=== PATIENT | male | born 1930 | race Caucasian/White ===

== ENCOUNTER 2016-06-11 08:54 | Emergency (ER) | payer OTHER ==
[~2016-06-11 08:54] MED LIST: CALCIUM500 M2; FISH OIL1000 M1; LEVOFLOXACIN500 MG PO; NAMENDA10 MG PO; VITAMIN C100 M1; VITAMIN D1000 UNIT PO
--- NOTE | 2016-06-11 13:40 | ED CLINICAL REPORT ---
Clinical Report - Physicians/Mid Levels [facility] [address] [place] [address] 06/11/2016 8:53 Patient: AURELIANO FARRELL Time Seen: 09:07; initial patient contact. Arrived- By private vehicle. Historian- patient. HISTORY OF PRESENT ILLNESS Chief Complaint: COUGH. This started about 3 days ago; Also fell last night and is still present. The illness is described as mild. The patient has had a cough and nasal congestion. No sputum production, difficulty breathing, fever or chills. Additional history - No known contact with a sick individual. Similar symptoms previously: None. Recent medical care: Not recently seen/assessed. REVIEW OF SYSTEMS No headache, nausea, vomiting, diarrhea or pedal edema. No calf pain. All systems otherwise negative, except as recorded above. PAST HISTORY Hyponatremia. Diarrhea. Gastroenteritis. Weakness. Hypotension. Hypovolemia. Lung Disease. Dementia. Hematuria. COPD - Chronic Obstructive Pulmonary Disease. SOCIAL HISTORY Former smoker. PHYSICAL EXAM Vital Signs: 06/11/2016 09:05 BP: 103/84. HR: 78. RR: 18. O2 saturation: 100%. Temp: 98.8 F. Pain level now: 0/10. Have been reviewed as normal. Appearance: Alert. No acute distress. Eyes: Pupils equal, round and reactive to light. Eyes normal inspection. ENT: Pharynx normal. Neck: Normal inspection. No JVD or lymphadenopathy. CVS: Normal heart rate and rhythm. Heart sounds normal. Respiratory: No respiratory distress. Breath sounds normal. Skin: Skin warm and dry. Normal skin color. No rash. Extremities: No calf tenderness. No lower extremity edema. Neuro: Awake. Alert. Oriented X 3. Cranial nerves II through XII intact. No cerebellar findings. No motor deficit. No sensory deficit. Reflexes normal. LABS, X-RAYS, AND EKG Laboratory Tests: UA-Culture if indicated: (CODY: 06/11/2016 10:05) ( MsgRcvd 06/11/2016 10:42) Final results Test Result Flag Units (Reference) URINE COLOR YELLOW URINE APPEARANCE CLEAR URINE GLUCOSE NEGATIVE (NEGATIVE) URINE BILIRUBIN NEGATIVE (NEGATIVE) URINE KETONE 2+ (NEGATIVE) URINE SPECIFIC GRAVITY 1.010 (1.010-1.030) URINE PH 6.0 (5.0-8.0) URINE PROTEIN NEGATIVE (NEGATIVE) URINE UROBILINOGEN 0.2 EU/dL (0.2-1.0) URINE NITRITE NEGATIVE (NEGATIVE) URINE BLOOD NEGATIVE (NEGATIVE) URINE LEUK ESTERASE NEGATIVE (NEGATIVE) URINE RBC 0-1 rbc/hpf (0-1) URINE WBC 1-3 wbc/hpf (0-1) URINE EPITHELIAL CELLS 0-1 EPI/hpf (0-5) URINE BACTERIA FEW (1+) (NONE SEEN) URINE COMMENT CULT NOT INDICATED 1+ MUCOUSURINE CULTURES ARE SET-UP BASED ON THE FOLLOWING CRITERIA:POSITIVE NITRITEPOSITIVE LEUKOCYTE ESTERASEGREATER THAN 10 WHITE BLOOD CELLSMODERATE (2+) OR GREATER BACTERIA CBC w Diff: (CODY: 06/11/2016 09:20) ( [facility] [place] Final results Test Result Flag Units (Reference) WHITE BLOOD COUNT 8.1 K/uL (4.5-11.5) RED BLOOD COUNT 4.23 L M/uL (4.50-5.90) HEMOGLOBIN 13.2 L gm/dL (13.5-17.5) HEMATOCRIT 39.3 L % (41.0-53.0) MEAN CELL VOLUME 93 fL (80-100) MEAN CORPUSCULAR HGB 31 pg (26-34) MEAN CORPUSCULAR HGB CONC 34 g/dL (31-37) RED CELL DISTRIBUTION WIDTH 13.7 % (11.6-14.8) PLATELET COUNT 227 K/uL (150-400) NEUTROPHIL % 88.1 H % (50-75) LYMPH % 3.4 L % (25-40) MONO % 8.4 % (3-14) EOSINOPHIL % 0.1 % (0-4) BASOPHIL % 0 % (0-2) Urine Drug Screen: (CODY: 06/11/2016 10:05) ( [facility] [place]/11/2016 10:37) Final results Test Result Flag Units (Reference) AMPHETAMINE/METHAMPHETAMINE NEGATIVE (NEGATIVE) BARBITURATE NEGATIVE (NEGATIVE) BENZODIAZEPINE NEGATIVE (NEGATIVE) CANNABINOID NEGATIVE (NEGATIVE) COCAINE NEGATIVE (NEGATIVE) ECSTASY NEGATIVE (NEGATIVE) METHADONE NEGATIVE (NEGATIVE) OPIATE NEGATIVE (NEGATIVE) The urine drug screen is a qualitative screening test fordrug overdose and abuse. All screen results should beconsidered as presumptive.Drugs screened for are as follows:BenzodiazepinesCocaineAmphetamines/MetamphetaminesTHC (Tetrahydrocannabinol)OpiatesBarbituratesEcstasyMethadonePositive results are unconfirmed. For confirmation, notifythe lab for the specimen to be sent to the reference lab.All confirmations must be performed by a differentmethodology.The ingestion of natural herbal and plant productscontaining Ephedra/Ephedra metabolites can produce in urineone or more substances capable of cross reacting withamphetamine/methamphetamine immunoassays. These testsprovide a preliminary result only. A more specificalternative chemical method must be used to obtain aconfirmed analytical result. CMP: (CODY: 06/11/2016 09:20) ( MsgRcvd 06/11/2016 09:53) Final results Test Result Flag Units (Reference) GLUCOSE 85 mg/dL (70-110) BUN 17 mg/dL (7-18) CREATININE 1.1 mg/dL (0.6-1.3) Estimated GFR >60 mL/min Estimated GFR- >60 mL/min Note: Persistent reduction over 3 months in eGFR<60 mL/min/1.73 m2 defines CKD. Patients with eGFR values>=60 mL/min/1.73 m2 may also have CKD if evidence ofpersistent proteinuria. Additional information may be foundat www.kidney.org. SODIUM 132 L mmol/L (136-145) POTASSIUM 4.0 mmol/L (3.5-5.1) CHLORIDE 97 L mmol/L (98-107) CARBON DIOXIDE 25 mmol/L (21-32) CALCIUM 8.8 mg/dL (8.5-10.1) TOTAL PROTEIN 7.0 g/dL (6.4-8.2) ALBUMIN 3.9 g/dL (3.3-5.0) BILIRUBIN, TOTAL 0.6 mg/dL (0.0-1.0) ALKALINE PHOSPHATASE 46 U/L (46-116) AST (SGOT) 25 U/L (15-37) ALT (SGPT) 30 U/L (12-78) . PROGRESS AND PROCEDURES Course of Care: D/C planning met w/ pt and . F2F signed for home health PT and nurse eval. Disposition: Discharged home in good and improved condition. Condition: good. CLINICAL IMPRESSION Acute rhinitis. INSTRUCTIONS Your Current Medications: CONTINUE TAKING THE FOLLOWING MEDICATIONS: Mamarterin hydrochloride*. Tamsulosin HCl Oral. Prescription Medications: Tessalon Perles 100 mg: take 1 orally every 8 hours as needed for cough. Dispense twenty (20). No refills. Substitution is permissible. Follow-up: Follow up with your doctor in about three days. Call for an appointment. Screening today revealed the patient's blood pressure to be in the hypertensive range. The patient should follow up with a primary care provider for blood pressure management. (Electronically signed by Marquise Lantigua Dr. 06/11/2016 21:51)
--- NOTE | 2016-06-11 13:41 | ED NURSING NOTES ---
Clinical Report - Nurses [facility] [address] [place] [address] 06/11/2016 8:53 Patient: AURELIANO FARRELL TRIAGE Triage time 09:06. Acuity: LEVEL 3. Chief Complaint: (Pt's , who takes care of pt, states last night, he got up, fell softly to floor, and has had lung congestion for 3 days, pt also has dementia). Alert. TIANA COMA SCORE: Tiana Coma Scale: 14- eyes open spontaneously (4); best verbal response- disoriented (4); best motor response- obeys commands (6). --09:13 Jacqueline Marcus R.N. 09:05 06/11/16. BP: 103/84. HR: 78. RR: 18. O2 saturation: 100%. Temp: 98.8 F. Pain level now: 0/10. --09:13 Jacqueline Marcus R.N. Weight: 63.5 kg stated. Height/Length: 67 inches Per Patient. BMI: 21.9. --09:08 Jacqueline Marcus R.N. Medications Mamarterin hydrochloride. Tamsulosin HCl Oral. --09:10 Jacqueline Marcus R.N. Allergies No Known Drug Allergy. --09:10 Jacqueline Marcus R.N. History Arrived by private vehicle. Historian: family. Accompanied by family. Primary physician (Charleen). This started last night. PAST MEDICAL HX: Immunizations: up-to-date and has received pneumonia vaccine. History was obtained from patient's spouse. SURGERY HX: No history of previous surgery. SOCIAL HX: Former smoker, end date 1959. No alcohol use or drug use. FUNCTIONAL ASSESSMENT: Functional assessment performed: requires assistance with the activities of daily living; communication barrier present- this communication barrier is a new problem; hearing impairment present- this hearing impairment is an ongoing problem; cognitive impairment- senile dementia. --09:13 Jacqueline Marcus R.N. PROBLEMS: Hyponatremia. Diarrhea. Gastroenteritis. Weakness. Hypotension. Hypovolemia. Lung Disease. Dementia. Hematuria. COPD - Chronic Obstructive Pulmonary Disease. --09:08 Jacqueline Marcus R.N. Interventions ID band on patient. To room. --09:13 Jacqueline Marcus R.N. PHYSICAL ASSESSMENT 09:14 06/11/16. GENERAL / NEURO / PSYCH: Alert. Decreased awareness. RESPIRATORY: Respirations not labored. --09:14 Jacqueline Marcus R.N. NURSING PROGRESS NOTES 09:43 06/11/2016 Site #1 started via IV in the right forearm with an 20g angiocath, with aseptic technique and good blood return; one attempt. Blood drawn: rainbow set. Labeled in the presence of the patient and sent to the lab. Saline lock flushed with 10 mL saline. --09:43 Jacqueline Marcus R.N. 09:43 06/11/2016 Started bag #1 1000 mL IV Fluids IV NS (Saline); at 999 mL/hr via site #1 via IV pump. Confirmed 5 rights. --09:43 Jacqueline Marcus R.N. 09:20. school bus monitor, pulse oximeter and NIBP monitor placed on patient; property assessment monitor- Lead II and V1; monitor alarms on. Head of bed elevated. Patient identifiers checked. Call light placed in reach. Bed placed in lowest position. Brakes of bed on. Patient ready for evaluation- chart flagged. --10:23 Jacqueline Marcus R.N. 09:50. ( Pt assisted with 2 staff, to get pt up and stand to void for urine sample, pt unable to void into urinal, placed back in bed, attends placed.). --10:24 Jacqueline Marcus R.N. 10:00. Patient ID band checked. Catheterized urine collected with return of yellow-colored clear urine; sample sent to lab for urinalysis and culture. --10:24 Jacqueline Marcus R.N. 11:30 06/11/16. BP: 154/95. HR: 81. RR: 14. O2 saturation: 99%. --11:57 Jacqueline Marcus R.N. 11:35. Assisted patient to ambulate and back to bed; tolerated well (with walker down hernandez and back, ERMD performed quick assessment in hernandez of pt's balance, pt tolerated well). --12:00 Jacqueline Marcus R.N. 12:04 06/11/16. ( Pt's wants a chest x ray taken, and pt to have antibiotics prescribed. Explained that there was no indication that pt needed either. Discharge planning notified to see pt's . She seems exhausted, caring for her at this point, and thinks he is going to get worse.). --12:04 Jacqueline Marcus R.N. DISPOSITION / DISCHARGE Departure time: 1350. Condition at departure: improved. ( event planner, Luz, talked with pt's , and has agreed to help with homecare, pt's told that they will contact her on Tuesday.). No learning barriers present. Discharge instructions provided and reviewed with the spouse. Reviewed referral to home health for followup (PCP, physical therapy, and homecare). Verbalized understanding. Written instructions provided. The patient was discharged home. He left the Emergency Department ambulatory. --15:04 Jacqueline Marcus R.N. 13:50 06/11/16. BP: 137/79. HR: 80. RR: 18. O2 saturation: 96%. Pain level now: 0/10. --15:04 Jacqueline Marcus R.N. 13:50. ( 30 minutes spent helping pt get dressed, into wheelchair, and up to the hospital cafeteria so they can eat before leaving for home.). --15:05 Jacqueline Marcus R.N. Locked/Released at 06/11/2016 15:13 by Jacqueline Marcus R.N.
--- NOTE | 2016-06-11 13:41 | ED NURSING NOTES ---
Clinical Report - Nurses [facility] [address] [place] [address] 06/11/2016 8:53 Patient: AURELIANO FARRELL TRIAGE Triage time 09:06. Acuity: LEVEL 3. Chief Complaint: (Pt's , who takes care of pt, states last night, he got up, fell softly to floor, and has had lung congestion for 3 days, pt also has dementia). Alert. TIANA COMA SCORE: Tiana Coma Scale: 14- eyes open spontaneously (4); best verbal response- disoriented (4); best motor response- obeys commands (6). --09:13 Jacqueline Marcus R.N. 09:05 06/11/16. BP: 103/84. HR: 78. RR: 18. O2 saturation: 100%. Temp: 98.8 F. Pain level now: 0/10. --09:13 Jacqueline Marcus R.N. Weight: 63.5 kg stated. Height/Length: 67 inches Per Patient. BMI: 21.9. --09:08 Jacqueline Marcus R.N. Medications Mamarterin hydrochloride. Tamsulosin HCl Oral. --09:10 Jacqueline Marcus R.N. Allergies No Known Drug Allergy. --09:10 Jacqueline Marcus R.N. History Arrived by private vehicle. Historian: family. Accompanied by family. Primary physician (Charleen). This started last night. PAST MEDICAL HX: Immunizations: up-to-date and has received pneumonia vaccine. History was obtained from patient's spouse. SURGERY HX: No history of previous surgery. SOCIAL HX: Former smoker, end date 1959. No alcohol use or drug use. FUNCTIONAL ASSESSMENT: Functional assessment performed: requires assistance with the activities of daily living; communication barrier present- this communication barrier is a new problem; hearing impairment present- this hearing impairment is an ongoing problem; cognitive impairment- senile dementia. --09:13 Jacqueline Marcus R.N. PROBLEMS: Hyponatremia. Diarrhea. Gastroenteritis. Weakness. Hypotension. Hypovolemia. Lung Disease. Dementia. Hematuria. COPD - Chronic Obstructive Pulmonary Disease. --09:08 Jacqueline Marcus R.N. Interventions ID band on patient. To room. --09:13 Jacqueline Marcus R.N. PHYSICAL ASSESSMENT 09:14 06/11/16. GENERAL / NEURO / PSYCH: Alert. Decreased awareness. RESPIRATORY: Respirations not labored. --09:14 Jacqueline Marcus R.N. NURSING PROGRESS NOTES 09:43 06/11/2016 Site #1 started via IV in the right forearm with an 20g angiocath, with aseptic technique and good blood return; one attempt. Blood drawn: rainbow set. Labeled in the presence of the patient and sent to the lab. Saline lock flushed with 10 mL saline. --09:43 Jacqueline Marcus R.N. 09:43 06/11/2016 Started bag #1 1000 mL IV Fluids IV NS (Saline); at 999 mL/hr via site #1 via IV pump. Confirmed 5 rights. --09:43 Jacqueline Marcus R.N. 09:20. athletic monitor, pulse oximeter and NIBP monitor placed on patient; athletic monitor- Lead II and V1; monitor alarms on. Head of bed elevated. Patient identifiers checked. Call light placed in reach. Bed placed in lowest position. Brakes of bed on. Patient ready for evaluation- chart flagged. --10:23 Jacqueline Marcus R.N. 09:50. ( Pt assisted with 2 staff, to get pt up and stand to void for urine sample, pt unable to void into urinal, placed back in bed, attends placed.). --10:24 Jacqueline Marcus R.N. 10:00. Patient ID band checked. Catheterized urine collected with return of yellow-colored clear urine; sample sent to lab for urinalysis and culture. --10:24 Jacqueline Marcus R.N. 11:30 06/11/16. BP: 154/95. HR: 81. RR: 14. O2 saturation: 99%. --11:57 Jacqueline Marcus R.N. 11:35. Assisted patient to ambulate and back to bed; tolerated well (with walker down hernandez and back, ERMD performed quick assessment in hernandez of pt's balance, pt tolerated well). --12:00 Jacqueline Marcus R.N. 12:04 06/11/16. ( Pt's wants a chest x ray taken, and pt to have antibiotics prescribed. Explained that there was no indication that pt needed either. Discharge planning notified to see pt's . She seems exhausted, caring for her at this point, and thinks he is going to get worse.). --12:04 Jacqueline Marcus R.N. DISPOSITION / DISCHARGE Departure time: 1350. Condition at departure: improved. ( meeting planner, Luz, talked with pt's , and has agreed to help with homecare, pt's told that they will contact her on Tuesday.). No learning barriers present. Discharge instructions provided and reviewed with the spouse. Reviewed referral to home health for followup (PCP, physical therapy, and homecare). Verbalized understanding. Written instructions provided. The patient was discharged home. He left the Emergency Department ambulatory. --15:04 Jacqueline Marcus R.N. 13:50 06/11/16. BP: 137/79. HR: 80. RR: 18. O2 saturation: 96%. Pain level now: 0/10. --15:04 Jacqueline Marcus R.N. 13:50. ( 30 minutes spent helping pt get dressed, into wheelchair, and up to the hospital cafeteria so they can eat before leaving for home.). --15:05 Jacqueline Marcus R.N. Locked/Released at 06/11/2016 15:13 by Jacqueline Marcus R.N.
--- NOTE | 2016-06-11 13:41 | ED ORDER SUMMARY ---
..... Patient: AURELIANO FARRELL OrderSheet [facility] VisitID: [id number] [place] [address] 85y, M Registration Date/Time: 06/11/2016 ORDER SHEET Weight: 63.5 kg (stated) Allergies: No Known Drug Allergy GENERAL ORDERS: CBC w Diff Urgent (:06/11/2016 Karin Land) (Ack 9:27 LTapper) (9:34 LSullivan R.N.) CMP Urgent (:06/11/2016 Karin Land) (Ack 9:27 LTapper) (9:34 LSullivan R.N.) UA-Culture if indicated Urgent (06/11/2016 Karin Land) (Ack 9:27 LTapper) (10:24 LSullivan R.N.) Urine Drug Screen Urgent (:06/11/2016 Karin Land) (Ack 9:27 LTapper) (10:25 LSullivan R.N.) MEDICATION ORDERS: IV FLUIDS: IV NS : initial bolus none -, then 1000 mL/hr for X1 (NOW) (09:06/11/2016 Karin Land) (9:43 LSullivan R.N.) ORDER SHEET NOTES: [Electronically signed by Jacqueline Marcus R.N. (15:13 06/11/2016)] [Electronically signed by Marquise Lantigua Dr. (21:51 06/11/2016)] [Electronically locked/signed by Jacqueline Marcus R.N. (15:13 06/11/2016)]
--- NOTE | 2016-06-11 13:41 | ED ORDER SUMMARY ---
..... Patient: AURELIANO FARRELL OrderSheet [facility] VisitID: [id number] [place] [address] 85y, M Registration Date/Time: 06/11/2016 ORDER SHEET Weight: 63.5 kg (stated) Allergies: No Known Drug Allergy GENERAL ORDERS: CBC w Diff Urgent (:06/11/2016 Karin Land) (Ack 9:27 LTapper) (9:34 LSullivan R.N.) CMP Urgent (:06/11/2016 Karin Land) (Ack 9:27 LTapper) (9:34 LSullivan R.N.) UA-Culture if indicated Urgent (06/11/2016 Karin Land) (Ack 9:27 LTapper) (10:24 LSullivan R.N.) Urine Drug Screen Urgent (:06/11/2016 Karin Land) (Ack 9:27 LTapper) (10:25 LSullivan R.N.) MEDICATION ORDERS: IV FLUIDS: IV NS : initial bolus none -, then 1000 mL/hr for X1 (NOW) (09:06/11/2016 Karin Land) (9:43 LSullivan R.N.) ORDER SHEET NOTES: [Electronically signed by Jacqueline Marcus R.N. (15:13 06/11/2016)] [Electronically signed by Marquise Lantigua Dr. (21:51 06/11/2016)] [Electronically locked/signed by Jacqueline Marcus R.N. (15:13 06/11/2016)]
--- NOTE | 2016-06-11 21:51 | ED MAR SUMMARY ---
..... Medication Administration Record [facility] [address] [place] [address] Patient: AURELIANO FARRELL Visit ID: [id number] 85y, M Weight: 63.5 kg Height/Length: 67 in BMI: 21.9 ALLERGIES: No Known Drug Allergy Start 09:43 06/11/2016 Jacqueline Marcus R.N. Medication Administered: IV NS (SALINE), Dose: IV Fluids, Rate: 999 mL/hr, Dispensed: 1000 mL bag, Site: #1 right forearm. Medication Ordered: IV NS : initial bolus none -, then 1000 mL/hr for X1 (NOW).
--- NOTE | 2016-06-11 21:51 | ED MAR SUMMARY ---
..... Medication Administration Record [facility] [address] [place] [address] Patient: AURELIANO FARRELL Visit ID: [id number] 85y, M Weight: 63.5 kg Height/Length: 67 in BMI: 21.9 ALLERGIES: No Known Drug Allergy Start 09:43 06/11/2016 Jacqueline Marcus R.N. Medication Administered: IV NS (SALINE), Dose: IV Fluids, Rate: 999 mL/hr, Dispensed: 1000 mL bag, Site: #1 right forearm. Medication Ordered: IV NS : initial bolus none -, then 1000 mL/hr for X1 (NOW).
--- NOTE | 2016-06-11 21:51 | ED DISCHARGE INSTRUCTIONS ---
Patient: AURELIANO FARRELL General Instructions [facility] VisitID: [id number] [place] [address] 85y, M Registration Date/Time: 06/11/2016 Acute rhinitis. INSTRUCTIONS Your Current Medications: CONTINUE TAKING THE FOLLOWING MEDICATIONS: Mamarterin hydrochloride*. Tamsulosin HCl Oral. Prescription Medications: Tessalon Perles 100 mg: take 1 orally every 8 hours as needed for cough. Dispense twenty (20). No refills. Substitution is permissible. Follow-up: Follow up with your doctor in about three days. Call for an appointment. Screening today revealed the patient's blood pressure to be in the hypertensive range. The patient should follow up with a primary care provider for blood pressure management. ADDITIONAL INFORMATION Viral Respiratory Illness [Adult] You have an Upper Respiratory Illness (URI) caused by a virus. This illness is contagious during the first few days. It is spread through the air by coughing and sneezing or by direct contact (touching the sick person and then touching your own eyes, nose or mouth). Most viral illnesses go away within 7-10 days with rest and simple home remedies. Sometimes, the illness may last for several weeks. Antibiotics will not kill a virus and are generally not prescribed for this condition. Home Care: 1) If symptoms are severe, rest at home for the first 2-3 days. When you resume activity, don't let yourself get too tired. 2) Avoid being exposed to cigarette smoke (yours or others). 3) Tylenol (acetaminophen) or ibuprofen (Advil, Motrin) will help fever, muscle aching and headache. (Persons under 18 with fever should not take aspirin since this may cause liver damage.) 4) Your appetite may be poor, so a light diet is fine. Avoid dehydration by drinking 6-8 glasses of fluids per day (water, soft drinks, juices, tea, soup). Extra fluids will help loosen secretions in the nose and lungs. 5) Hxim-att-iqnewvx cold medicines will not shorten the length of time youre sick, but they may be helpful for the following symptoms: cough (Robitussin DM); sore throat (Chloraseptic lozenges or spray); nasal and sinus congestion (Actifed, Sudafed, Chlortrimeton). Follow Up with your doctor or as advised if you dont improve over the next week. Get Prompt Medical Attention if any of the following occur: -- Cough with lots of colored sputum (mucus) or blood in your sputum -- Chest pain, shortness of breath, wheezing or have trouble breathing -- Severe headache; face, neck or ear pain -- Fever over 100.4 F (38.0 C) for more than three days -- You cant swallow due to throat pain Benzonatate Oral capsule, liquid filled What is this medicine? BENZONATATE (timmy ESCOBAR na smalls) is used to treat cough. How should I use this medicine? Take this medicine by mouth with a glass of water. Follow the directions on the prescription label. Avoid breaking, chewing, or sucking the capsule, as this can cause serious side effects. Take your medicine at regular intervals. Do not take your medicine more often than directed. Talk to your information assurance analyst regarding the use of this medicine in children. While this drug may be prescribed for children as young as 10 years old for selected conditions, precautions do apply. What side effects may I notice from receiving this medicine? Side effects that you should report to your doctor or health career agent as soon as possible: allergic reactions like skin rash, itching or hives, swelling of the face, lips, or tongue breathing problems chest pain confusion or hallucinations irregular heartbeat numbness of mouth or throat seizures Side effects that usually do not require medical attention (report to your doctor or health career agent if they continue or are bothersome): burning feeling in the eyes constipation headache nasal congestion stomach upset What may interact with this medicine? Do not take this medicine with any of the following medications: MAOIs like Carbex, Eldepryl, Marplan, Nardil, and Parnate What if I miss a dose? If you miss a dose, take it as soon as you can. If it is almost time for your next dose, take only that dose. Do not take double or extra doses. Where should I keep my medicine? Keep out of the reach of children. Store at room temperature between 15 and 30 degrees C (59 and 86 degrees F). Keep tightly closed. Protect from light and moisture. Throw away any unused medicine after the expiration date. What should I tell my health care provider before I take this medicine? They need to know if you have any of these conditions: kidney or liver disease an unusual or allergic reaction to benzonatate, anesthetics, other medicines, foods, dyes, or preservatives or trying to get breast-feeding What should I watch for while using this medicine? Tell your doctor if your symptoms do not improve or if they get worse. If you have a high fever, skin rash, or headache, see your health career agent. You may get drowsy or dizzy. Do not drive, use machinery, or do anything that needs mental alertness until you know how this medicine affects you. Do not sit or stand up quickly, especially if you are an older patient. This reduces the risk of dizzy or fainting spells. You have been given the following additional information: Uri, Viral, No Abx (Adult) Benzonatate Oral capsule, liquid filled (Electronically signed by Marquise Lantigua Dr. 06/11/2016 21:51)
--- NOTE | 2016-06-11 21:51 | ED DISCHARGE INSTRUCTIONS ---
Patient: AURELIANO FARRELL General Instructions [facility] VisitID: [id number] [place] [address] 85y, M Registration Date/Time: 06/11/2016 Acute rhinitis. INSTRUCTIONS Your Current Medications: CONTINUE TAKING THE FOLLOWING MEDICATIONS: Mamarterin hydrochloride*. Tamsulosin HCl Oral. Prescription Medications: Tessalon Perles 100 mg: take 1 orally every 8 hours as needed for cough. Dispense twenty (20). No refills. Substitution is permissible. Follow-up: Follow up with your doctor in about three days. Call for an appointment. Screening today revealed the patient's blood pressure to be in the hypertensive range. The patient should follow up with a primary care provider for blood pressure management. ADDITIONAL INFORMATION Viral Respiratory Illness [Adult] You have an Upper Respiratory Illness (URI) caused by a virus. This illness is contagious during the first few days. It is spread through the air by coughing and sneezing or by direct contact (touching the sick person and then touching your own eyes, nose or mouth). Most viral illnesses go away within 7-10 days with rest and simple home remedies. Sometimes, the illness may last for several weeks. Antibiotics will not kill a virus and are generally not prescribed for this condition. Home Care: 1) If symptoms are severe, rest at home for the first 2-3 days. When you resume activity, don't let yourself get too tired. 2) Avoid being exposed to cigarette smoke (yours or others). 3) Tylenol (acetaminophen) or ibuprofen (Advil, Motrin) will help fever, muscle aching and headache. (Persons under 18 with fever should not take aspirin since this may cause liver damage.) 4) Your appetite may be poor, so a light diet is fine. Avoid dehydration by drinking 6-8 glasses of fluids per day (water, soft drinks, juices, tea, soup). Extra fluids will help loosen secretions in the nose and lungs. 5) Pnsw-mwx-hbjllqx cold medicines will not shorten the length of time youre sick, but they may be helpful for the following symptoms: cough (Robitussin DM); sore throat (Chloraseptic lozenges or spray); nasal and sinus congestion (Actifed, Sudafed, Chlortrimeton). Follow Up with your doctor or as advised if you dont improve over the next week. Get Prompt Medical Attention if any of the following occur: -- Cough with lots of colored sputum (mucus) or blood in your sputum -- Chest pain, shortness of breath, wheezing or have trouble breathing -- Severe headache; face, neck or ear pain -- Fever over 100.4 F (38.0 C) for more than three days -- You cant swallow due to throat pain Benzonatate Oral capsule, liquid filled What is this medicine? BENZONATATE (timmy ESCOBAR na smalls) is used to treat cough. How should I use this medicine? Take this medicine by mouth with a glass of water. Follow the directions on the prescription label. Avoid breaking, chewing, or sucking the capsule, as this can cause serious side effects. Take your medicine at regular intervals. Do not take your medicine more often than directed. Talk to your television announcer regarding the use of this medicine in children. While this drug may be prescribed for children as young as 10 years old for selected conditions, precautions do apply. What side effects may I notice from receiving this medicine? Side effects that you should report to your doctor or health in home caregiver as soon as possible: allergic reactions like skin rash, itching or hives, swelling of the face, lips, or tongue breathing problems chest pain confusion or hallucinations irregular heartbeat numbness of mouth or throat seizures Side effects that usually do not require medical attention (report to your doctor or health in home caregiver if they continue or are bothersome): burning feeling in the eyes constipation headache nasal congestion stomach upset What may interact with this medicine? Do not take this medicine with any of the following medications: MAOIs like Carbex, Eldepryl, Marplan, Nardil, and Parnate What if I miss a dose? If you miss a dose, take it as soon as you can. If it is almost time for your next dose, take only that dose. Do not take double or extra doses. Where should I keep my medicine? Keep out of the reach of children. Store at room temperature between 15 and 30 degrees C (59 and 86 degrees F). Keep tightly closed. Protect from light and moisture. Throw away any unused medicine after the expiration date. What should I tell my health care provider before I take this medicine? They need to know if you have any of these conditions: kidney or liver disease an unusual or allergic reaction to benzonatate, anesthetics, other medicines, foods, dyes, or preservatives or trying to get breast-feeding What should I watch for while using this medicine? Tell your doctor if your symptoms do not improve or if they get worse. If you have a high fever, skin rash, or headache, see your health in home caregiver. You may get drowsy or dizzy. Do not drive, use machinery, or do anything that needs mental alertness until you know how this medicine affects you. Do not sit or stand up quickly, especially if you are an older patient. This reduces the risk of dizzy or fainting spells. You have been given the following additional information: Uri, Viral, No Abx (Adult) Benzonatate Oral capsule, liquid filled (Electronically signed by Marquise Lantigua Dr. 06/11/2016 21:51)
--- NOTE | 2016-06-11 21:51 | ED MED RECONCILIATION SUMMARY ---
Patient: AURELIANO FARRELL Medication Reconciliation Report [facility] VisitID: [id number] [address] [place] [address] 85y, M Registration Date/Time: 06/11/2016 Weight: 63.5 kg Height/Length: 67 in. BMI: 21.9 ALLERGIES: No Known Drug Allergy The patient's Home Medications are listed below: CONTINUE TAKING THE FOLLOWING MEDICATIONS: Mamarterin hydrochloride Tamsulosin HCl Oral The source(s) of the original Home Medication information: Not obtained. The following Medications were given to the patient in the Emergency Department: IV NS IV Fluids bolus 0, then 999 mL/hr, administered: 06/11/2016 9:43:00 AM The following Medications were prescribed to the patient: Tessalon Perles 100 mg: take 1 orally every 8 hours as needed for cough. Dispense twenty (20). No refills. Substitution is permissible. -- Marquise Lantigua Dr.
--- NOTE | 2016-06-11 21:51 | ED MED RECONCILIATION SUMMARY ---
Patient: AURELIANO FARRELL Medication Reconciliation Report [facility] VisitID: [id number] [address] [place] [address] 85y, M Registration Date/Time: 06/11/2016 Weight: 63.5 kg Height/Length: 67 in. BMI: 21.9 ALLERGIES: No Known Drug Allergy The patient's Home Medications are listed below: CONTINUE TAKING THE FOLLOWING MEDICATIONS: Mamarterin hydrochloride Tamsulosin HCl Oral The source(s) of the original Home Medication information: Not obtained. The following Medications were given to the patient in the Emergency Department: IV NS IV Fluids bolus 0, then 999 mL/hr, administered: 06/11/2016 9:43:00 AM The following Medications were prescribed to the patient: Tessalon Perles 100 mg: take 1 orally every 8 hours as needed for cough. Dispense twenty (20). No refills. Substitution is permissible. -- Marquise Lantigua Dr.
== END 2016-06-11 13:50 | disposition home or self-care (01) ==
LOC: ED SRH 08:54
DX: J00 Acute nasopharyngitis [common cold] (principal); J44.9 Chronic obstructive pulmonary disease, unspecified; Z87.891 Personal history of nicotine dependence
CPT/HCPCS: 90004; 90100; 92760; 92761; 92762; 92763; 92764; 92765; 92766; 92767; 95059

== ENCOUNTER 2016-06-11 21:57 | Inpatient (IN) | payer OTHER ==
[~2016-06-11] VITALS: Ht 172.7 cm; Wt 63.6 kg
--- NOTE | 2016-06-11 23:14 | DIAGNOSTIC IMAGING REPORT ---
PROCEDURE: XR CHEST 2 VIEW INDICATION: COUGH TECHNIQUE: PA and lateral views. COMPARISON: None. FINDINGS: Allowing for suboptimal inspiration, there is mild basilar volume loss. Mid and upper lungs are clear. Heart and mediastinum are normal. Thorax is normal. IMPRESSION: 1. Mild basilar volume loss (accentuated due to suboptimal inspiration). 2. Otherwise negative chest.
--- NOTE | 2016-06-11 23:20 | DIAGNOSTIC IMAGING REPORT ---
PROCEDURE: CT HEAD WITHOUT CONTRAST INDICATION: Fall. TECHNIQUE: Noncontrast axial images with sagittal and coronal reformations. COMPARISON: None. FINDINGS: Mild motion require repeat images. There is evidence of moderate old small vessel disease with mild atrophic changes. Brain and ventricles are otherwise normal. No evidence of an acute process or hemorrhage. Mild mucosal thickening and minimal fluid in the left maxillary sinus. Moderate mucosal thickening of the left ethmoid air cells. Sinuses and mastoids are otherwise normal. IMPRESSION: 1. 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 2. Mild mucosal thickening and fluid in the left maxillary sinus with moderate mucosal thickening in the left ethmoid air cells (acute versus chronic changes). 3. Otherwise negative head CT. 4. Findings discussed with Dr. Julián Terry at [address] scans at this facility use dose modulation, iterative reconstruction, and/or weight-based dosing when appropriate to reduce radiation dose to as low as reasonably achievable.
--- NOTE | 2016-06-12 01:08 | ED ORDER SUMMARY ---
..... Patient: AURELIANO FARRELL OrderSheet [facility] VisitID: [id number] [place] [address] 85y, M Registration Date/Time: 06/11/2016 ORDER SHEET Weight: 68.0 kg (estimated) Allergies: No Known Drug Allergy GENERAL ORDERS: Chest 2V Urgent (22:05 06/11/2016 Zohra Land) (Ack 22:12 Bia ER Tech1) (22:47 MCampbell) CT Head wo Cont Urgent (22:06 06/11/2016 Zohra Land) (Ack 22:12 Bia ER Tech1) (22:47 MCampbell) Rapid Influenza Screen (Nasal Pharyngeal) (mucus) Urgent (22:08 06/11/2016 Zohra Land) (Ack 22:12 Bia ER Tech1) (23:08 HOShaughnessy R.N.) RSV Rapid Screen (Nasal Pharyngeal) (mucus) Urgent (22:08 06/11/2016 Zohra Land) (Ack 22:12 Bia ER Tech1) (23:08 HOShaughnessy R.N.) Lactate, Serum Urgent (22:08 06/11/2016 Zohra Land) (Ack 22:12 Bia MARIN Tech1) (23:09 HOShaughnessy R.N.) TSH Urgent (22:08 06/11/2016 Zohra Land) (Ack 22:12 Bia MARIN Tech1) (23:08 HOShaughnessy R.N.) CBC w Diff Urgent (22:08 06/11/2016 Zohra Land) (Ack 22:12 Bia ER Tech1) (23:08 HOShaughnessy R.N.) CMP Urgent (22:08 06/11/2016 Zohra Land) (Ack 22:12 Bia ER Tech1) (23:08 HOShaughnessy R.N.) UA-Culture if indicated Urgent (22:08 06/11/2016 Zohra Land) (Ack 22:12 Bia ER Tech1) (23:55 HOShaughnessy R.N.) PT with INR Urgent (22:08 06/11/2016 Zohra Land) (Ack 22:12 IJurca ER Tech1) (23:08 HOSmichaela R.N.) Pulse oximeter (22:08 06/11/2016 Zohra Land) (Ack 22:11 IJurca ER Tech1) (22:11 IJurca ER Tech1) PCT (Procalcitonin) Urgent (00:21 06/12/2016 Zohra Land) (0:22 AMcQuoid ER Tech1) Blood Culture (No) (N/A) Urgent (00:42 06/12/2016 Zohra Land) (Ack 0:51 AMcQuoid ER Tech1) (1:03 Corina R.N.) MEDICATION ORDERS: Tylenol PO 650 mg (NOW) (00:54 06/12/2016 Zohra Land) (1:22 HOSmichaela R.N.) IV FLUIDS: IV NS : initial bolus 1000 mL (1000 mL/hr), then none - for X1 (NOW) (22:06 06/11/2016 Zohra Land) (23:09 Corina R.N.) Levaquin IV 750 mg/150 mL (NOW) (00:42 06/12/2016 Zohra Land) (1:03 Corina R.N.) ORDER SHEET NOTES: [Electronically signed by Devon Chowdhury R.N. (01:50 06/12/2016)] [Electronically signed by Devon Chowdhury R.N. (01:51 06/12/2016)] [Electronically signed by Julián Terry Dr. (02:31 06/12/2016)] [Electronically locked/signed by Devon Chowdhury R.N. (01:50 06/12/2016)]
--- NOTE | 2016-06-12 01:08 | ED ORDER SUMMARY ---
..... Patient: AURELIANO FARRELL OrderSheet [facility] VisitID: [id number] [place] [address] 85y, M Registration Date/Time: 06/11/2016 ORDER SHEET Weight: 68.0 kg (estimated) Allergies: No Known Drug Allergy GENERAL ORDERS: Chest 2V Urgent (22:05 06/11/2016 Zohra Land) (Ack 22:12 Bia ER Tech1) (22:47 MCampbell) CT Head wo Cont Urgent (22:06 06/11/2016 Zohra Land) (Ack 22:12 Bia ER Tech1) (22:47 MCampbell) Rapid Influenza Screen (Nasal Pharyngeal) (mucus) Urgent (22:08 06/11/2016 Zohra Land) (Ack 22:12 Bia ER Tech1) (23:08 HOShaughnessy R.N.) RSV Rapid Screen (Nasal Pharyngeal) (mucus) Urgent (22:08 06/11/2016 Zohra Land) (Ack 22:12 Bia ER Tech1) (23:08 HOShaughnessy R.N.) Lactate, Serum Urgent (22:08 06/11/2016 Zohra Land) (Ack 22:12 Bia MARIN Tech1) (23:09 HOShaughnessy R.N.) TSH Urgent (22:08 06/11/2016 Zohra Land) (Ack 22:12 Bia MARIN Tech1) (23:08 HOShaughnessy R.N.) CBC w Diff Urgent (22:08 06/11/2016 Zohra Land) (Ack 22:12 Bia ER Tech1) (23:08 HOShaughnessy R.N.) CMP Urgent (22:08 06/11/2016 Zohra Land) (Ack 22:12 Bia ER Tech1) (23:08 HOShaughnessy R.N.) UA-Culture if indicated Urgent (22:08 06/11/2016 Zohra Land) (Ack 22:12 Bia ER Tech1) (23:55 HOShaughnessy R.N.) PT with INR Urgent (22:08 06/11/2016 Zohra Land) (Ack 22:12 IJurca ER Tech1) (23:08 HOSmichaela R.N.) Pulse oximeter (22:08 06/11/2016 Zohra Land) (Ack 22:11 IJurca ER Tech1) (22:11 IJurca ER Tech1) PCT (Procalcitonin) Urgent (00:21 06/12/2016 Zohra Land) (0:22 AMcQuoid ER Tech1) Blood Culture (No) (N/A) Urgent (00:42 06/12/2016 Zohra Land) (Ack 0:51 AMcQuoid ER Tech1) (1:03 Corina R.N.) MEDICATION ORDERS: Tylenol PO 650 mg (NOW) (00:54 06/12/2016 Zohra Land) (1:22 HOSmichaela R.N.) IV FLUIDS: IV NS : initial bolus 1000 mL (1000 mL/hr), then none - for X1 (NOW) (22:06 06/11/2016 Zohra Land) (23:09 Corina R.N.) Levaquin IV 750 mg/150 mL (NOW) (00:42 06/12/2016 Zohra Land) (1:03 Corina R.N.) ORDER SHEET NOTES: [Electronically signed by Devon Chowdhury R.N. (01:50 06/12/2016)] [Electronically signed by Devon Chowdhury R.N. (01:51 06/12/2016)] [Electronically signed by Julián Terry Dr. (02:31 06/12/2016)] [Electronically locked/signed by Devon Chowdhury R.N. (01:50 06/12/2016)]
--- NOTE | 2016-06-12 01:08 | ED CLINICAL REPORT ---
Clinical Report - Physicians/Mid Levels [facility] [address] [place] [address] 06/11/2016 21:58 Patient: AURELIANO FARRELL Time Seen: 2109. Arrived- By private vehicle. Historian- patient. HISTORY OF PRESENT ILLNESS Chief Complaint: CHANGED MENTAL STATUS. The patient has been disoriented and confused. This started today and is still present and worsening. It was gradual in onset and has been constant but is not gone now. Patient was last known well (yesterday). The patient was not found unresponsive. Not a jail resident. No history of chronic dementia. No change in diabetic routine, alcohol recently or recent drug use. The patient has had constant, generalized weakness. No numbness. He has had difficulty walking. He has had a recent fall. Usually is alert and oriented X3 and usually has normal mobility. (lives with . unable to take care of him.). Similar symptoms previously: Once (family reports when patient gets ill, has altered mental status). Recent medical care: The patient was seen recently in the emergency department (Family states that he has gotten worse since discharge today. Reports he is weak and unable to get up without heavy assistance). REVIEW OF SYSTEMS The patient has had fever. No skin rash. All systems otherwise negative, except as recorded above. PAST HISTORY See nurses notes. Additional Surgeries: no known surgeries. Medications: Mamarterin hydrochloride. Tamsulosin HCl Oral. Allergies: No Known Drug Allergy. SOCIAL HISTORY Never smoker. No alcohol use or drug use. No recent travel. Is a local resident. FAMILY HISTORY Negative. ADDITIONAL NOTES The nursing notes have been reviewed. PHYSICAL EXAM Vital Signs: 06/11/2016 22:07 BP: 140/73. HR: 98. RR: 16. O2 saturation: 100%. Temp: 98.3 F. Pain level now: 0/10. Hypertensive. Oxygen saturation normal. Appearance: Alert. No acute distress. Head: Head atraumatic. Eyes: Pupils equal, round and reactive to light. ENT: Normal ENT inspection. Airway intact. Moist mucous membranes. Pharynx normal. Neck: Normal inspection. Neck supple. CVS: Normal heart rate and rhythm. Heart sounds normal. Pulses normal. Abdomen: Soft and nontender. No organomegaly. Back: Normal inspection. Skin: Skin warm and dry. Normal skin color. No rash. Normal skin turgor. Extremities: Extremities exhibit normal ROM. No lower extremity edema. Neuro: Alert. Moderately altered mental status: confused and disoriented to place and time. Patient slow to respond and has incoherent responses. Responds to simple questions and commands. Eyes open spontaneously. Best verbal response: oriented X 3. Best motor response: obeys commands. Mood/affect normal. Speech normal. Cranial nerves normal (as tested). No motor deficit. No sensory deficit. Reflexes normal. (unable to test cerebellar function because unable to follow commands). LABS, X-RAYS, AND EKG Chest X-ray: (PROCEDURE: XR CHEST 2 VIEW INDICATION: COUGH TECHNIQUE: PA and lateral views. COMPARISON: None. FINDINGS: Allowing for suboptimal inspiration, there is mild basilar volume loss. Mid and upper lungs are clear. Heart and mediastinum are normal. Thorax is normal. IMPRESSION: 1. Mild basilar volume loss (accentuated due to suboptimal inspiration). 2. Otherwise negative chest.). CT Head: (PROCEDURE: CT HEAD WITHOUT CONTRAST INDICATION: Fall. TECHNIQUE: Noncontrast axial images with sagittal and coronal reformations. COMPARISON: None. FINDINGS: Mild motion require repeat images. There is evidence of moderate old small vessel disease with mild atrophic changes. Brain and ventricles are otherwise normal. No evidence of an acute process or hemorrhage. Mild mucosal thickening and minimal fluid in the left maxillary sinus. Moderate mucosal thickening of the left ethmoid air cells. Sinuses and mastoids are otherwise normal. IMPRESSION: 1. 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 2. Mild mucosal thickening and fluid in the left maxillary sinus with moderate mucosal thickening in the left ethmoid air cells (acute versus chronic changes). 3. Otherwise negative head CT.). Laboratory Tests: UA-Culture if indicated: (CODY: 06/11/2016 23:53) ( MsgRcvd 06/12/2016 00:07) Final results Test Result Flag Units (Reference) URINE COLOR YELLOW URINE APPEARANCE CLEAR URINE GLUCOSE NEGATIVE (NEGATIVE) URINE BILIRUBIN NEGATIVE (NEGATIVE) URINE KETONE 1+ (NEGATIVE) URINE SPECIFIC GRAVITY 1.020 (1.010-1.030) URINE PH 6.0 (5.0-8.0) URINE PROTEIN TRACE (NEGATIVE) URINE UROBILINOGEN 0.2 EU/dL (0.2-1.0) URINE NITRITE NEGATIVE (NEGATIVE) URINE BLOOD 2+ (NEGATIVE) URINE LEUK ESTERASE NEGATIVE (NEGATIVE) URINE RBC 3-5 rbc/hpf (0-1) URINE WBC 1-3 wbc/hpf (0-1) URINE EPITHELIAL CELLS 1-3 EPI/hpf (0-5) URINE BACTERIA TRACE (<1+) (NONE SEEN) URINE COMMENT CULT NOT INDICATED MUCUS 1+URINE CULTURES ARE SET-UP BASED ON THE FOLLOWING CRITERIA:POSITIVE NITRITEPOSITIVE LEUKOCYTE ESTERASEGREATER THAN 10 WHITE BLOOD CELLSMODERATE (2+) OR GREATER BACTERIA CBC w Diff: (CODY: 06/11/2016 23:05) ( [facility] 06/11/2016 23:18) Final results Test Result Flag Units (Reference) WHITE BLOOD COUNT 10.3 K/uL (4.5-11.5) RED BLOOD COUNT 4.19 L M/uL (4.50-5.90) HEMOGLOBIN 12.8 L gm/dL (13.5-17.5) HEMATOCRIT 38.6 L % (41.0-53.0) MEAN CELL VOLUME 92 fL (80-100) MEAN CORPUSCULAR HGB 31 pg (26-34) MEAN CORPUSCULAR HGB CONC 33 g/dL (31-37) RED CELL DISTRIBUTION WIDTH 13.4 % (11.6-14.8) PLATELET COUNT 188 K/uL (150-400) LYMPH % 5.8 L % (25-40) MONO % 5.7 % (3-14) GRANULOCYTE % 88.5 PT with INR: (CODY: 06/11/2016 23:05) ( [facility] 06/11/2016 23:25) Final results Test Result Flag Units (Reference) INR 1.0 (0.8-1.2) Low Intensity Therapy: INR 1.5-2.0 PT range 18.5-23.1Mod.Intensity Therapy: INR 2.0-3.0 PT range 23.1-31.5High Intensity Therapy: INR 2.5-3.5 PT range 27.4-35.5High Intensity Therapy 2: INR 3.0-4.0 PT range 31.5-39.3 Lactate, Serum: (CODY: 06/11/2016 23:05) ( MsgRcvd 06/11/2016 23:35) Final results Test Result Flag Units (Reference) LACTIC ACID 0.9 mmol/L (0.4-2.0) CMP: (CODY: 06/11/2016 23:05) ( MsgRcvd 06/11/2016 23:35) Final results Test Result Flag Units (Reference) GLUCOSE 111 H mg/dL (70-110) BUN 23 H mg/dL (7-18) CREATININE 1.0 mg/dL (0.6-1.3) Estimated GFR >60 mL/min Estimated GFR- >60 mL/min Note: Persistent reduction over 3 months in eGFR<60 mL/min/1.73 m2 defines CKD. Patients with eGFR values>=60 mL/min/1.73 m2 may also have CKD if evidence ofpersistent proteinuria. Additional information may be foundat [email or web address].org. SODIUM 132 L mmol/L (136-145) POTASSIUM 3.8 mmol/L (3.5-5.1) CHLORIDE 96 L mmol/L (98-107) CARBON DIOXIDE 24 mmol/L (21-32) CALCIUM 8.2 L mg/dL (8.5-10.1) TOTAL PROTEIN 6.3 L g/dL (6.4-8.2) ALBUMIN 3.5 g/dL (3.3-5.0) BILIRUBIN, TOTAL 0.4 mg/dL (0.0-1.0) ALKALINE PHOSPHATASE 41 L U/L (46-116) AST (SGOT) 25 U/L (15-37) ALT (SGPT) 29 U/L (12-78) THYROID STIMULATING HORMONE 1.426 uIU/mL (0.30-3.74) RSV Rapid Screen: (CODY: 06/11/2016 22:56) ( MsgRcvd 06/11/2016 23:17) Final results SPECIMEN DESCRIPTION: MUCUS Test Result Flag Units (Reference) RSV RAPID TEST DATE: 06/11/16 NEGATIVE SCREEN: NEGATIVE If Rapid RSV test is Negative but RSV is still suspected, a confirmatory RSV DFA can be requested. RAPID INFLUENZA SCREEN DATE: 06/11/16 INFLUENZA A: NEGATIVE SCREEN FOR INFLUENZA A INFLUENZA B: NEGATIVE SCREEN FOR INFLUENZA B . PROGRESS AND PROCEDURES Course of Care: the patient is an 85-year-old male with a past medical history significant for COPD and dementia presenting for a vaginal vault her mental status. The patient according to the family,has gotten more confused today. Reports yesterday patient was doing fine with his mental status and had dinner normally. Patient reportedly has what they describe as delirium when he gets sick. The last time he was here back in January 2016, the report he acted the same way due to a diarrheal illness. The patient has a somewhat a difficult time with understanding verbal commands. Patient does not report any pain anywhere however and answers simple yes or no questions. Laboratory studies will be reevaluated based on patient's symptoms here in the emergency department. Because the patient's symptoms have worsened since being discharged from the hospital, feel that repeating patient's labs are necessary. We will also check another possibilities for the patient's altered mental status. Did also reported the patient had fell yesterday. We will obtain a CT scan of the patient's head as he is over 65 years old and altered with a fall. Patient also is having a cough. We will add a chest x-ray to patient's workup. Family is agreeable to treatment plan. At this time, family is concerned about caring for their family member at home. Patient's workup shows patient to have a sinus infection. While here in the emergency department, patient also was noted to be febrile. Tylenol was given. Antibiotic to been ordered for the sinus infection. Blood cultures were obtained prior to antibiotics. Levaquin was chosen as the patient is having signs of upper respiratory symptoms and would also cover the sinus infection found on CT scan. Family was agreeable to the treatment and plan. Updated them onthe workup, diagnosis, and plan of care. All questions answered. Was able to speak to the hospitalist about the patient's course. No further recommendations. Patient will be accepted by the hospitalist. Patient is noted to be a no code. Vital signs here in the emergency Department have been unremarkable except for a fever of 101.7. Blood pressure and oxygen saturation are within normal limits. Do not feel patient needs to be admitted to the intensive care unit. Disposition: Observation in Acute Care. CLINICAL IMPRESSION acute delirium acute left maxillary sinusitis febrile illness URI, acute. (Electronically signed by Julián Terry Dr. 06/12/2016 2:31)
--- NOTE | 2016-06-12 01:08 | ED NURSING NOTES ---
Clinical Report - Nurses [facility] [place] [address] 06/11/2016 21:58 Patient: AURELIANO FARRELL TRIAGE Triage time 2208 PM. Chief Complaint: (Revist/Weakness). Alert. No acute distress. --22:11 Devon Chowdhury R.N. 22:07 06/11/16. BP: 140/73 taken on the left arm, via an automated monitor, while lying. HR: 98. RR: 16. O2 saturation: 100%. Temp: 98.3 F. Pain level now: 010. --22:11 Devon Chowdhury R.N. Acuity: LEVEL 2. --22:11 Devon Chowdhury R.N. Weight: 68 kg estimated. Height/Length: 67 inches Estimated. BMI: 23.5. --01:48 Devon Chowdhury R.N. Medications Mamarterin hydrochloride. Tamsulosin HCl Oral. --22: Devon Chowdhury R.N. Allergies No Known Drug Allergy. --22: Devon Chowdhury R.N. History Arrived by private vehicle. Historian: family. Accompanied by family. ( Patient presents to the ED for a revist for symptoms of weakness and difficulty with ADLs. Patient family brings patient back into the emergency department because they cannot take care of him at home.). Treatment CANCER RESEARCHER: Seen within the last 30 days at this facility in the ED; seen for similar symptoms. --22:11 Devon Chowdhury R.N. PROBLEMS: URI. Hyponatremia. Diarrhea. Gastroenteritis. Weakness. Hypotension. Hypovolemia. Lung Disease. Dementia. Hematuria. COPD - Chronic Obstructive Pulmonary Disease. --22:09 Devon Chowdhury R.N. ADDITIONAL SURGERIES: no known surgeries. Interventions ID band on patient. --22:11 Devon Chowdhury R.N. PHYSICAL ASSESSMENT To room via wheelchair. GENERAL / NEURO / PSYCH: Decreased awareness. The patient is disoriented to person, place, time and situation. He has had weakness. Abnormal gait. HEENT: Pupils equal, round and reactive to light. No facial asymmetry noted. Mucous membranes are pink. RESPIRATORY: Respirations not labored. Chest nontender. Breath sounds within normal limits. CVS: Normal sinus rhythm noted. Capillary refill less than 2 seconds. Pulses within normal limits. GI / : ( Incontinent of urine). Abdomen soft and nontender and normal bowel sounds. SKIN: Skin intact. Skin is warm and dry. Poor skin turgor. --01:30 Devon Chowdhury R.N. NURSING PROGRESS NOTES Patient to ED via wheelchair. Three person transfer to stretcher. Patient soiled with dried stool. Cleaned with given fresh brief. --22:25 McQuoid, Rochelle, ER Tech1 22:18. Patient transported to radiology by stretcher. --22:26 McQuoid, Rochelle, ER Tech1 23:06/11/2016 Site #1 started via IV in the left forearm with an 18g angiocath; one attempt. Blood drawn: rainbow set. Labeled in the presence of the patient and sent to the lab. Saline lock flushed with 10 mL saline. --23: Devon Chowdhury R.N. 23:06/11/2016 Started bag #1 1000 mL IV Fluids IV NS (Saline); bolus of 1000 mL wide open via site #1 via IV pump. Allergies verified and confirmed 5 rights. IV patency established. IV site checked: no pain, redness, or swelling. IV flushed thoroughly pre- and post-medication administration. --23: Devon Chowdhury R.N. Patient ID band checked for patient name and birthdate: patient confirmed. Blood samples drawn from the right antecubital space with Vacutainer and 18g butterfly by nurse per protocol ; labeled in presence of the patient and sent to lab: [employer] set. Call light placed in reach. Side rails up x 2. Bed placed in lowest position. Brakes of bed on. --23:15 Devon Chowdhury R.N. 23:14 06/11/16. BP: 148/65. HR: 84. RR: 16. O2 saturation: 97%. Pain level now: 0/10. --23:15 Devon Chowdhury R.N. Patient ID band checked for patient name and birthdate: family confirmed. Instructions provided to collect clean catch urine and patient verbalized understanding. Clean catch urine collected with return of yellow-colored clear urine; odor is normal; sample sent to lab for urinalysis and culture. Specimen labeled in the presence of the patient. --23:56 Devon Chowdhury R.N. 00:45 06/12/16. BP: 117/58. HR: 79. RR: 16. O2 saturation: 98%. --00:45 Devon Chowdhury R.N. Call light placed in reach. Side rails up x 2. Bed placed in lowest position. Brakes of bed on. --00:45 Devon Chowdhury R.N. 00:49 06/12/16. Temp: 101.7 F. --00:49 Juana Lord R.N. 01:02 06/12/2016 Started 750 mg of Levaquin (Levofloxacin) IVPB; at 100 mL/hr over 90 minute(s) via site #1 via IV pump. Allergies verified and confirmed 5 rights. IV patency established. IV site checked: no pain, redness, or swelling. IV flushed thoroughly pre- and post-medication administration. --01:03 Devon Chowdhury R.N. 01:07 06/12/16. Temp: 101.6 F (oral). --01:07 Devon Chowdhury R.N. 01:22 06/12/2016 Tylenol (Acetaminophen) PO Tablets 650 mg given. Allergies verified and confirmed 5 rights. --01:22 Devon Chowdhury R.N. Care transferred and report given (JASS Vivar). ( Patient's depend changed.). --01:32 Devon Chowdhury R.N. 01:48 06/12/2016 Levaquin IVPB Continued: upon transfer at the rate of 100 mL/hr. 100 mL remaining bag #1. IV patency established. IV site checked: no pain, redness, or swelling. IV flushed thoroughly. --01:49 Devon Chowdhury R.N. 01:49 06/12/2016 IV Fluids IV NS Discontinued: bag #1 completed. Total amount infused: 1000 mL. IV patency established. IV site checked: no pain, redness, or swelling. IV flushed thoroughly. --01:49 Devon Chowdhury R.N. ( Patient transported to acute care by [facility] tech.). --01:50 Devon Chowdhury R.N. DISPOSITION / DISCHARGE The goals identified in the patient's plan of care were met. Admitted to Acute Care (210 AM). FALL RISK ASSESSMENT: Fall risk assessment completed. No fall risk identified. --01:38 Devon Chowdhury R.N. Locked/Released at 06/12/2016 1:51 by Devon Chowdhury R.N.
--- NOTE | 2016-06-12 01:08 | ED NURSING NOTES ---
Clinical Report - Nurses [facility] [place] [address] 06/11/2016 21:58 Patient: AURELIANO FARRELL TRIAGE Triage time 2208 PM. Chief Complaint: (Revist/Weakness). Alert. No acute distress. --22:11 Devon Chowdhury R.N. 22:07 06/11/16. BP: 140/73 taken on the left arm, via an automated monitor, while lying. HR: 98. RR: 16. O2 saturation: 100%. Temp: 98.3 F. Pain level now: 010. --22:11 Devon Chowdhury R.N. Acuity: LEVEL 2. --22:11 Devon Chowdhury R.N. Weight: 68 kg estimated. Height/Length: 67 inches Estimated. BMI: 23.5. --01:48 Devon Chowdhury R.N. Medications Mamarterin hydrochloride. Tamsulosin HCl Oral. --22: Devon Chowdhury R.N. Allergies No Known Drug Allergy. --22: Devon Chowdhury R.N. History Arrived by private vehicle. Historian: family. Accompanied by family. ( Patient presents to the ED for a revist for symptoms of weakness and difficulty with ADLs. Patient family brings patient back into the emergency department because they cannot take care of him at home.). Treatment SYSTEM SPECIALIST: Seen within the last 30 days at this facility in the ED; seen for similar symptoms. --22:11 Devon Chowdhury R.N. PROBLEMS: URI. Hyponatremia. Diarrhea. Gastroenteritis. Weakness. Hypotension. Hypovolemia. Lung Disease. Dementia. Hematuria. COPD - Chronic Obstructive Pulmonary Disease. --22:09 Devon Chowdhury R.N. ADDITIONAL SURGERIES: no known surgeries. Interventions ID band on patient. --22:11 Devon Chowdhury R.N. PHYSICAL ASSESSMENT To room via wheelchair. GENERAL / NEURO / PSYCH: Decreased awareness. The patient is disoriented to person, place, time and situation. He has had weakness. Abnormal gait. HEENT: Pupils equal, round and reactive to light. No facial asymmetry noted. Mucous membranes are pink. RESPIRATORY: Respirations not labored. Chest nontender. Breath sounds within normal limits. CVS: Normal sinus rhythm noted. Capillary refill less than 2 seconds. Pulses within normal limits. GI / : ( Incontinent of urine). Abdomen soft and nontender and normal bowel sounds. SKIN: Skin intact. Skin is warm and dry. Poor skin turgor. --01:30 Devon Chowdhury R.N. NURSING PROGRESS NOTES Patient to ED via wheelchair. Three person transfer to stretcher. Patient soiled with dried stool. Cleaned with given fresh brief. --22:25 McQuoid, Rochelle, ER Tech1 22:18. Patient transported to radiology by stretcher. --22:26 McQuoid, Rochelle, ER Tech1 23:06/11/2016 Site #1 started via IV in the left forearm with an 18g angiocath; one attempt. Blood drawn: rainbow set. Labeled in the presence of the patient and sent to the lab. Saline lock flushed with 10 mL saline. --23: Devon Chowdhury R.N. 23:06/11/2016 Started bag #1 1000 mL IV Fluids IV NS (Saline); bolus of 1000 mL wide open via site #1 via IV pump. Allergies verified and confirmed 5 rights. IV patency established. IV site checked: no pain, redness, or swelling. IV flushed thoroughly pre- and post-medication administration. --23: Devon Chowdhury R.N. Patient ID band checked for patient name and birthdate: patient confirmed. Blood samples drawn from the right antecubital space with Vacutainer and 18g butterfly by nurse per protocol ; labeled in presence of the patient and sent to lab: [employer] set. Call light placed in reach. Side rails up x 2. Bed placed in lowest position. Brakes of bed on. --23:15 Devon Chowdhury R.N. 23:14 06/11/16. BP: 148/65. HR: 84. RR: 16. O2 saturation: 97%. Pain level now: 0/10. --23:15 Devon Chowdhury R.N. Patient ID band checked for patient name and birthdate: family confirmed. Instructions provided to collect clean catch urine and patient verbalized understanding. Clean catch urine collected with return of yellow-colored clear urine; odor is normal; sample sent to lab for urinalysis and culture. Specimen labeled in the presence of the patient. --23:56 Devon Chowdhury R.N. 00:45 06/12/16. BP: 117/58. HR: 79. RR: 16. O2 saturation: 98%. --00:45 Devon Chowdhury R.N. Call light placed in reach. Side rails up x 2. Bed placed in lowest position. Brakes of bed on. --00:45 Devon Chowdhury R.N. 00:49 06/12/16. Temp: 101.7 F. --00:49 Juana Lord R.N. 01:02 06/12/2016 Started 750 mg of Levaquin (Levofloxacin) IVPB; at 100 mL/hr over 90 minute(s) via site #1 via IV pump. Allergies verified and confirmed 5 rights. IV patency established. IV site checked: no pain, redness, or swelling. IV flushed thoroughly pre- and post-medication administration. --01:03 Devon Chowdhury R.N. 01:07 06/12/16. Temp: 101.6 F (oral). --01:07 Devon Chowdhury R.N. 01:22 06/12/2016 Tylenol (Acetaminophen) PO Tablets 650 mg given. Allergies verified and confirmed 5 rights. --01:22 Devon Chowdhury R.N. Care transferred and report given (JASS Vivar). ( Patient's depend changed.). --01:32 Devon Chowdhury R.N. 01:48 06/12/2016 Levaquin IVPB Continued: upon transfer at the rate of 100 mL/hr. 100 mL remaining bag #1. IV patency established. IV site checked: no pain, redness, or swelling. IV flushed thoroughly. --01:49 Devon Chowdhury R.N. 01:49 06/12/2016 IV Fluids IV NS Discontinued: bag #1 completed. Total amount infused: 1000 mL. IV patency established. IV site checked: no pain, redness, or swelling. IV flushed thoroughly. --01:49 Devon Chowdhury R.N. ( Patient transported to acute care by [facility] tech.). --01:50 Devon Chowdhury R.N. DISPOSITION / DISCHARGE The goals identified in the patient's plan of care were met. Admitted to Acute Care (210 AM). FALL RISK ASSESSMENT: Fall risk assessment completed. No fall risk identified. --01:38 Devon Chowdhury R.N. Locked/Released at 06/12/2016 1:51 by Devon Chowdhury R.N.
[2016-06-12 02:00] VITALS: BP 112/64
--- NOTE | 2016-06-12 02:31 | ED MAR SUMMARY ---
..... Medication Administration Record [facility] [address] [place] [address] Patient: AURELIANO FARRELL Visit ID: [id number] 85y, M Weight: 68.0 kg Height/Length: 67 in BMI: 23.5 ALLERGIES: No Known Drug Allergy Start 23:09 06/11/2016 Devon Chowdhury R.N., Stop 01:49 06/12/2016 Devon Chowdhury R.N. Medication Administered: IV NS (SALINE), Dose: IV Fluids, Bolus: 1000 mL wide open, Dispensed: 1000 mL bag, Site: #1 left forearm. Medication Ordered: IV NS : initial bolus 1000 mL (1000 mL/hr), then none - for X1 (NOW). Start 01:02 06/12/2016 Devon Chowdhury R.N., Continued Upon Transfer 01:48 06/12/2016 Devon Chowdhury R.N. Medication Administered: LEVAQUIN [IVPB] (LEVOFLOXACIN), Dose: 750 mg IVPB over 90 minute(s), Rate: 100 mL/hr, Site: #1 left forearm. Medication Ordered: Levaquin IV 750 mg/150 mL (NOW). Given 01:22 06/12/2016 Devon Chowdhury R.N. Medication Administered: TYLENOL [PO] (ACETAMINOPHEN), Dose: 650 mg Tablets PO. Medication Ordered: Tylenol PO 650 mg (NOW).
--- NOTE | 2016-06-12 02:31 | ED MED RECONCILIATION SUMMARY ---
Patient: AURELIANO FARRELL Medication Reconciliation Report [facility] VisitID: [id number] [address] [place] [address] 85y, M Registration Date/Time: 06/11/2016 Weight: 68.0 kg Height/Length: 67 in. BMI: 23.5 ALLERGIES: No Known Drug Allergy The patient's Home Medications are listed below: THE FOLLOWING MEDICATIONS NEED TO BE RECONCILED: Mamarterin hydrochloride Tamsulosin HCl Oral The source(s) of the original Home Medication information: Not obtained. The following Medications were given to the patient in the Emergency Department: IV NS IV Fluids bolus 1000 mL wide open, administered: 06/11/2016 11:09:00 PM Levaquin [IVPB] IVPB bolus 0, then 750 mg 100 mL/hr, administered: 06/12/2016 1:02:00 AM Tylenol [PO] PO 650 mg, administered: 06/12/2016 1:22:00 AM The following Medications were prescribed to the patient: None.
--- NOTE | 2016-06-12 02:31 | ED MED RECONCILIATION SUMMARY ---
Patient: AURELIANO FARRELL Medication Reconciliation Report [facility] VisitID: [id number] [address] [place] [address] 85y, M Registration Date/Time: 06/11/2016 Weight: 68.0 kg Height/Length: 67 in. BMI: 23.5 ALLERGIES: No Known Drug Allergy The patient's Home Medications are listed below: THE FOLLOWING MEDICATIONS NEED TO BE RECONCILED: Mamarterin hydrochloride Tamsulosin HCl Oral The source(s) of the original Home Medication information: Not obtained. The following Medications were given to the patient in the Emergency Department: IV NS IV Fluids bolus 1000 mL wide open, administered: 06/11/2016 11:09:00 PM Levaquin [IVPB] IVPB bolus 0, then 750 mg 100 mL/hr, administered: 06/12/2016 1:02:00 AM Tylenol [PO] PO 650 mg, administered: 06/12/2016 1:22:00 AM The following Medications were prescribed to the patient: None.
--- NOTE | 2016-06-12 02:31 | ED DISCHARGE INSTRUCTIONS ---
Patient: AURELIANO FARRELL General Instructions [facility] VisitID: [id number] [address] [place] [address] 85y, M Registration Date/Time: 06/11/2016 acute delirium acute left maxillary sinusitis febrile illness URI, acute. (Electronically signed by Julián Terry Dr. 06/12/2016 2:31)
--- NOTE | 2016-06-12 02:31 | ED DISCHARGE INSTRUCTIONS ---
Patient: AURELIANO FARRELL General Instructions [facility] VisitID: [id number] [address] [place] [address] 85y, M Registration Date/Time: 06/11/2016 acute delirium acute left maxillary sinusitis febrile illness URI, acute. (Electronically signed by Julián Terry Dr. 06/12/2016 2:31)
--- NOTE | 2016-06-12 02:31 | ED MAR SUMMARY ---
..... Medication Administration Record [facility] [address] [place] [address] Patient: AURELIANO FARRELL Visit ID: [id number] 85y, M Weight: 68.0 kg Height/Length: 67 in BMI: 23.5 ALLERGIES: No Known Drug Allergy Start 23:09 06/11/2016 Devon Chowdhury R.N., Stop 01:49 06/12/2016 Devon Chowdhury R.N. Medication Administered: IV NS (SALINE), Dose: IV Fluids, Bolus: 1000 mL wide open, Dispensed: 1000 mL bag, Site: #1 left forearm. Medication Ordered: IV NS : initial bolus 1000 mL (1000 mL/hr), then none - for X1 (NOW). Start 01:02 06/12/2016 Devon Chowdhury R.N., Continued Upon Transfer 01:48 06/12/2016 Devon Chowdhury R.N. Medication Administered: LEVAQUIN [IVPB] (LEVOFLOXACIN), Dose: 750 mg IVPB over 90 minute(s), Rate: 100 mL/hr, Site: #1 left forearm. Medication Ordered: Levaquin IV 750 mg/150 mL (NOW). Given 01:22 06/12/2016 Devon Chowdhury R.N. Medication Administered: TYLENOL [PO] (ACETAMINOPHEN), Dose: 650 mg Tablets PO. Medication Ordered: Tylenol PO 650 mg (NOW).
--- NOTE | 2016-06-12 05:47 | Progress Note ---
Subjective General Admission History and Physical Examination Patient Name: Bryan Mathews Admission Date: June 12, 2016 Primary Care Provider: Basim Villaseñor M.D. Attending Physician: Stevenson Pringle M.D. Admitting Physician: Stevneson Pringle M.D. SUBJECTIVE Historian: Family, ER records (family members not present at time of examination ) Reliability: Fair Chief Complaint: URI, weakness, altered mental status History of Present Illness: The patient is a 85-year-old white male with a significant past medical history of Alzheimer's dementia, COPD, who presented to [facility] emergency department secondary to complaints of recent URI symptoms, cough, weakness, and altered mental status. [facility] ER evaluation was consistent with chronic dementia with acute mental status changes, acute sinusitis, URI, and diffuse weakness. Secondary to the above, the patient was admitted by Stevenson Pringle M.D. for further evaluation and treatment. The patient apparently has experienced URI symptoms recently. The patient has had nasal congestion and cough. This has been associated with acute changes in the patient's mental status without focal neurological deficits. The patient has had history of worsening mental status in the setting of acute illnesses in the past. He has long-standing dementia mild to moderate degree. The patient had been seen in [facility] emergency department on the day prior to admission secondary to similar complaints was discharged home. His symptoms worsened with increasing mental status changes/confusion prompting reevaluation at [facility] emergency department. [facility] ER evaluation showed the patient to have vital signs of blood pressure 143/73 mmHg, pulse 98, respirations 16, temperature 98.3, O2 sat room air 100%. The patient was noted to be disoriented without other significant physical findings other than diffuse weakness. Laboratory was noncontributory. CT scan showed acute sinusitis. Secondary to the above the patient was admitted with a diagnosis of acute mental status changes, acute sinusitis, URI, and diffuse weakness for further evaluation and treatment. PAST MEDICAL HISTORY Illnesses: 1. Alzheimer's dementia 2. COPD 3. Urinary incontinence Allergies: 1. No known drug allergies Medications: 1. Dementia medication-type unknown 2. Incontinence medication-type unknown Surgery: 1. Cataract surgery 2. Hernia surgery Injuries: 1. No significant Hospitalizations: 1. For above surgery and medical problems FAMILY HISTORY Parents: 1. Father, Juan Pablo, , 85, heart disease-type unknown, 2. Mother, Luz, , 93, cancer type unknown Siblings: 1. Male, Juan Pablo, , 57, heart disease 2. Male, Hemant, living, 85, health unknown Children: 1. Male, Arsen, living, 51, healthy 2. Female, dudley, living, 47, healthy 3. Male, Tarik, living, 42, healthy Other significant family history: None SOCIAL HISTORY 1. Marital Status: 2. Mandaen: [employer] 3. Education: High school, 3+ years college 4. Employment History: [employer], 20 years, retired, 5. Occupational health exposures: Dust, loud noises, heavy lifting HABITS 1. Tobacco: Previous history of smoking amount unknown stopped at age 49 2. Drugs: None 3. Alcohol: None 4. Caffeine: 2-4 cups per day HEALTH SUPERVISION Item/Test 1. Vision screen: 2013 2. Cholesterol Profile: 2015 3. PSA: 2010 4. FAITH: Unknown 5. FOBT: Unknown 6. Blood Glucose: 2016 7. Colonoscopy: 2013 8. History and physical exam: 2015 9. Audiogram: Unknown 10. Vision screen: 2013 IMMUNIZATIONS: 1. Pneumococcal: 2016 2. Influenza: Unknown 3. Tetanus: Unknown ADVANCED DIRECTIVES: 1. Patient has no advanced directives but wishes to be placed on a NO CODE STATUS during his hospitalization. REVIEW OF SYSTEMS Remarkable for those things stated in the history of present illness and past medical history. Seventeen point review of system completed with the following notable findings: General: Weakness Eyes: Dryness, decreased visual acuity requiring corrective lenses, history of cataracts Ears: Hearing loss Nose: Nasal congestion with discharge Respiratory: Shortness of breath, cough, wheezing, asthma/COPD, sputum production Genitourinary: Urinary frequency, urinary incontinence, nocturia, poor urinary stream Musculoskeletal: Joint stiffness Neurological: Balance problems, tremors, memory loss/dementia Endocrine: Cold intolerance Genitalia: Erectile dysfunction Physical Exam Vital Signs / I&Os Vital Signs Date Time Temp Pulse Resp B/P Pulse O2 O2 Flow FiO2 Ox Delivery Rate 06/12 199 Room Air 06/12 199 98.2 71 18 112/64 96 Room Air General Appearance Alert, Cooperative, No acute distress, oriented only to self HEENT Atraumatic, PERRLA, EOMI, Moist mucous membranes Lungs Scattered rhonchi, basilar crackles, Neck Supple, No JVD Cardiovascular Regular rate and rhythm, Normal S1 and S2, No murmurs, gallops, rubs Abdomen Normal bowel sounds, Soft, No tenderness, No guarding Extremities No cyanosis, No clubbing, No edema Neurological Cranial nerves intact, Strength 5/5 x4 ext's, No lateralizing signs Psych/Mental Status Mood normal, Confused LAB Results Laboratory Tests 06/12 06/11 06/11 06/11 0000 2353 2305 2305 Chemistry Plasma Sodium (136 - 145 mmol/L) 132 Plasma Potassium (3.5 - 5.1 mmol/L) 3.8 Plasma Chloride (98 - 107 mmol/L) 96 CO2 (Enzymatic) (21 - 32 mmol/L) 24 BUN (7 - 18 mg/dL) 23 Creatinine (0.6 - 1.3 mg/dL) 1.0 Est GFR ( Amer) (mL/min) >60 Est GFR (Non-Af Amer) (mL/min) >60 Glucose (70 - 110 mg/dL) 111 Lactic Acid (0.4 - 2.0 mmol/L) 0.9 Plasma Calcium (8.5 - 10.1 mg/dL) 8.2 Total Bilirubin (0.0 - 1.0 mg/dL) 0.4 AST (15 - 37 U/L) 25 ALT (12 - 78 U/L) 29 Alkaline Phosphatase (46 - 116 U/L) 41 Total Protein (6.4 - 8.2 g/dL) 6.3 Albumin (3.3 - 5.0 g/dL) 3.5 Procalcitonin (0 - 0.5 ng/mL) <0.5 TSH 3rd Generation (0.30 - 3.74 uIU/mL) 1.426 Coagulation INR (0.8 - 1.2) 1.0 Hematology WBC (4.5 - 11.5 K/uL) 10.3 RBC (4.50 - 5.90 M/uL) 4.19 Hgb (13.5 - 17.5 gm/dL) 12.8 Hct (41.0 - 53.0 %) 38.6 MCV (80 - 100 fL) 92 MCH (26 - 34 pg) 31 RDW (11.6 - 14.8 %) 13.4 Gran % 88.5 Lymph % (Auto) (25 - 40 %) 5.8 [place] % (Auto) (3 - 14 %) 5.7 Plt Count, EDTA (150 - 400 K/uL) 188 PUBS MCHC (31 - 37 g/dL) 33 Urines Urine Color YELLOW Urine Appearance CLEAR Urine pH (5.0 - 8.0) 6.0 Ur Specific [place] (1.010 - 1.030) 1.020 Urine Protein (NEGATIVE) TRACE Urine Ketones (NEGATIVE) 1+ Urine Blood (NEGATIVE) 2+ Urine Nitrite (NEGATIVE) NEGATIVE Urine Bilirubin (NEGATIVE) NEGATIVE Urine Urobilinogen (0.2 - 1.0 EU/dL) 0.2 Ur Leukocyte Esterase (NEGATIVE) NEGATIVE Urine RBC (0 - 1 rbc/hpf) 3-5 Urine WBC (0 - 1 wbc/hpf) 1-3 Ur Epithelial Cells (0 - 5 EPI/hpf) 1-3 Urine Bacteria (NONE SEEN) TRACE (<1+) Urine Glucose (NEGATIVE) NEGATIVE Urine Comment CULT NOT INDICATED Microbiology Date/Time Procedure - Status Source Growth 06/12 010 Blood Culture - RECD BLOOD 06/12 49 Blood Culture - RECD BLOOD 06/11 2255 Respiratory Syncytial Virus Ag Scrn - COMP NASALPHAR 06/11 2255 Influenza Screen - COMP NASALPHAR Imaging Chest X-Ray IMPRESSION: 1. Mild basilar volume loss (accentuated due to suboptimal inspiration). 2. Otherwise negative chest. Dictated by: ANASTASIIA RM MD D: ABBY;06/11/162312 CT Scan-Head IMPRESSION: 1. 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 2. Mild mucosal thickening and fluid in the left maxillary sinus with moderate mucosal thickening in the left ethmoid air cells (acute versus chronic changes). 3. Otherwise negative head CT. 4. Findings discussed with Dr. Julián Terry at [address] scans at this facility use dose modulation, iterative reconstruction, and/or weight-based dosing when appropriate to reduce radiation dose to as low as reasonably achievable. Dictated by: ANASTASIIA RM MD D: ABBY;06/11/162318 Assessment and Plan Problem List 1. Altered mental status Status Acute Onset Date 06/11/16 Plan -Patient presents with history of chronic dementia/Alzheimer's disease -Acute mental status changes -CT scan unremarkable -Probable related to intercurrent illness in setting of moderate dementia -Monitor 2. Sinusitis Plan -Patient with findings of sinusitis (acute) -Patient treated with Levaquin in emergency department -Augmentin 875 mg by mouth twice a day -Monitor 3. Acute delirium Plan -Patient with reported acute delirium in emergency department -Symptoms improved. -Patient with mental status changes/confusion but no significant delirium -Monitor -Discharge planning see regarding possible need for higher level of care-short- term 4. Hematuria of undiagnosed cause Plan -Patient with microscopic hematuria -Review previous workup. History of hematuria in the past -Monitor -Consider further radiological evaluation/cystoscopy 5. URI (upper respiratory infection) Plan -Patient with findings of URI -Mild -Monitor 6. COPD (chronic obstructive pulmonary disease) Status Chronic Onset Date Unknown Plan -Patient with history of COPD -On no medications as OP -Mild rhonchi noted -Duoneb as needed for RAD 7. Hyponatremia Status Acute Onset Date Unknown Plan -Patient with mild hyponatremia -Sodium 132 -Normal saline IV fluids -Monitor, no fluid restriction at this time Current status: Fair, unstable Anticipated discharge date: Anticipated discharge 1-2 days with improved status Anticipated discharge placement: Home versus assisted living based on patient's family to care for patient Patient care time: Time spent in chart review, patient interview, physical exam, CPOE, and care documentation: 70 minutes Visit to patient today: 2 Complexity of care: High E&M Codes Admission: Obsv-Comp/High/[id number]
[2016-06-12 06:59] VITALS: BP 108/58
[2016-06-12 10:57] VITALS: BP 118/60
[2016-06-12 14:30] VITALS: BP 113/63
[2016-06-12 18:26] VITALS: BP 126/69
[2016-06-12 22:45] VITALS: BP 108/61
[2016-06-13 01:41] VITALS: BP 144/84
[2016-06-13 06:36] VITALS: BP 133/75
[2016-06-13] MEDS ORDERED: TAMSULOSIN HCL0.4 MG PO (10:11)
[2016-06-13 10:49] VITALS: BP 121/71
[2016-06-13 14:58] VITALS: BP 148/90
[2016-06-13] MEDS ORDERED: NAMENDA10 MG PO (17:02)
[2016-06-13 18:23] VITALS: BP 127/69
--- NOTE | 2016-06-13 18:44 | Progress Note ---
Subjective General Patient seen and examined this am, Patient has been having a productive cough. Patient is otherwise stable Constitutional Denies: Fever, Chills, Sweats, Weakness, Malaise, Other. ENT Denies: Ear Pain, Ear Discharge, Nose Pain, Nasal Discharge, Nasal Congestion, Mouth Pain, Mouth Swelling, Throat Pain, Throat Swelling, Other. Cardiovascular Denies: Chest Pain, Palpitations, Orthopnea, PND, Edema, Light-headedness, Other. Gastrointestinal Denies: Nausea, Vomiting, Abdominal Pain, Diarrhea, Constipation, Melena, Hematochezia, Other. Musculoskeletal Denies: Neck Pain, Shoulder Pain, Arm Pain, Back Pain, Hand Pain, Leg Pain, Foot Pain, Other. Physical Exam Vital Signs / I&Os Vital Signs Date Time Temp Pulse Resp B/P Pulse O2 O2 Flow FiO2 Ox Delivery Rate 06/13 1823 97.5 76 18 127/69 98 Room Air 06/13 1458 97.7 72 18 148/90 98 Room Air 06/13 1049 99.0 64 18 121/71 97 Room Air 06/13 0636 99.9 77 18 133/75 94 Room Air 06/13 0141 98.2 77 18 144/84 100 Room Air 06/12 2245 99.3 60 18 108/61 96 Room Air I&O 06/12 0800 06/12 1600 06/13 0000 Intake Total 349 872 0447 Output Total 697 366 3083 Balance 73 -726 208 General Appearance Alert, Oriented X3, No acute distress HEENT PERRLA, EOMI, Moist mucous membranes Lungs Normal air movement, - bilateral ronchi present Cardiovascular Regular rate and rhythm Abdomen Soft, No tenderness Extremities No cyanosis, No clubbing, Normal pulses, No tenderness Neurological Normal speech, Sensation intact LAB Results Laboratory Tests 06/13 0535 Chemistry Plasma Sodium (136 - 145 mmol/L) 136 Plasma Potassium (3.5 - 5.1 mmol/L) 3.3 Plasma Chloride (98 - 107 mmol/L) 101 CO2 (Enzymatic) (21 - 32 mmol/L) 25 BUN (7 - 18 mg/dL) 13 Creatinine (0.6 - 1.3 mg/dL) 0.9 Est GFR ( Amer) (mL/min) >60 Est GFR (Non-Af Amer) (mL/min) >60 Glucose (70 - 110 mg/dL) 89 Plasma Calcium (8.5 - 10.1 mg/dL) 7.7 Hematology WBC (4.5 - 11.5 K/uL) 12.5 RBC (4.50 - 5.90 M/uL) 3.66 Hgb (13.5 - 17.5 gm/dL) 11.4 Hct (41.0 - 53.0 %) 33.9 MCV (80 - 100 fL) 93 MCH (26 - 34 pg) 31 RDW (11.6 - 14.8 %) 14.5 Neut % (Auto) (50 - 75 %) 89.3 Lymph % (Auto) (25 - 40 %) 4.7 [place] % (Auto) (3 - 14 %) 6.0 Eos % (Auto) (0 - 4 %) 0 Baso % (Auto) (0 - 2 %) 0 Plt Count, EDTA (150 - 400 K/uL) 179 PUBS MCHC (31 - 37 g/dL) 34 Assessment and Plan Problem List 1. Dementia due to Alzheimer's disease Plan - chronic problem - is unable to care for him - will have pt evaluate pt 2. URI (upper respiratory infection) Plan - pt has been having productive cough, ct scan is suggestive of sinusitis - will c/w augmentin for the time being 3. COPD (chronic obstructive pulmonary disease) Status Chronic Onset Date Unknown Plan - chronic condition - stable
--- NOTE | 2016-06-13 18:44 | Progress Note ---
Subjective General Patient seen and examined this am, Patient has been having a productive cough. Patient is otherwise stable Constitutional Denies: Fever, Chills, Sweats, Weakness, Malaise, Other. ENT Denies: Ear Pain, Ear Discharge, Nose Pain, Nasal Discharge, Nasal Congestion, Mouth Pain, Mouth Swelling, Throat Pain, Throat Swelling, Other. Cardiovascular Denies: Chest Pain, Palpitations, Orthopnea, PND, Edema, Light-headedness, Other. Gastrointestinal Denies: Nausea, Vomiting, Abdominal Pain, Diarrhea, Constipation, Melena, Hematochezia, Other. Musculoskeletal Denies: Neck Pain, Shoulder Pain, Arm Pain, Back Pain, Hand Pain, Leg Pain, Foot Pain, Other. Physical Exam Vital Signs / I&Os Vital Signs Date Time Temp Pulse Resp B/P Pulse O2 O2 Flow FiO2 Ox Delivery Rate 06/13 1823 97.5 76 18 127/69 98 Room Air 06/13 1458 97.7 72 18 148/90 98 Room Air 06/13 1049 99.0 64 18 121/71 97 Room Air 06/13 0636 99.9 77 18 133/75 94 Room Air 06/13 0141 98.2 77 18 144/84 100 Room Air 06/12 2245 99.3 60 18 108/61 96 Room Air I&O 06/12 0800 06/12 1600 06/13 0000 Intake Total 913 692 5498 Output Total 435 199 1673 Balance 73 -726 208 General Appearance Alert, Oriented X3, No acute distress HEENT PERRLA, EOMI, Moist mucous membranes Lungs Normal air movement, - bilateral ronchi present Cardiovascular Regular rate and rhythm Abdomen Soft, No tenderness Extremities No cyanosis, No clubbing, Normal pulses, No tenderness Neurological Normal speech, Sensation intact LAB Results Laboratory Tests 06/13 0535 Chemistry Plasma Sodium (136 - 145 mmol/L) 136 Plasma Potassium (3.5 - 5.1 mmol/L) 3.3 Plasma Chloride (98 - 107 mmol/L) 101 CO2 (Enzymatic) (21 - 32 mmol/L) 25 BUN (7 - 18 mg/dL) 13 Creatinine (0.6 - 1.3 mg/dL) 0.9 Est GFR ( Amer) (mL/min) >60 Est GFR (Non-Af Amer) (mL/min) >60 Glucose (70 - 110 mg/dL) 89 Plasma Calcium (8.5 - 10.1 mg/dL) 7.7 Hematology WBC (4.5 - 11.5 K/uL) 12.5 RBC (4.50 - 5.90 M/uL) 3.66 Hgb (13.5 - 17.5 gm/dL) 11.4 Hct (41.0 - 53.0 %) 33.9 MCV (80 - 100 fL) 93 MCH (26 - 34 pg) 31 RDW (11.6 - 14.8 %) 14.5 Neut % (Auto) (50 - 75 %) 89.3 Lymph % (Auto) (25 - 40 %) 4.7 [place] % (Auto) (3 - 14 %) 6.0 Eos % (Auto) (0 - 4 %) 0 Baso % (Auto) (0 - 2 %) 0 Plt Count, EDTA (150 - 400 K/uL) 179 PUBS MCHC (31 - 37 g/dL) 34 Assessment and Plan Problem List 1. Dementia due to Alzheimer's disease Plan - chronic problem - is unable to care for him - will have pt evaluate pt 2. URI (upper respiratory infection) Plan - pt has been having productive cough, ct scan is suggestive of sinusitis - will c/w augmentin for the time being 3. COPD (chronic obstructive pulmonary disease) Status Chronic Onset Date Unknown Plan - chronic condition - stable
[2016-06-13 22:52] VITALS: BP 131/68
[2016-06-14 02:08] VITALS: BP 122/66
[2016-06-14 06:38] VITALS: BP 107/61
[2016-06-14 10:23] VITALS: BP 116/67
[2016-06-14 14:40] VITALS: BP 135/78
[2016-06-14 18:18] VITALS: BP 139/80
[2016-06-14 23:19] VITALS: BP 153/88
[2016-06-15 03:20] VITALS: BP 109/58
[2016-06-15 06:30] VITALS: BP 119/71
[2016-06-15 10:39] VITALS: BP 98/63
--- NOTE | 2016-06-15 14:25 | Progress Note ---
Subjective General Pt seen and examined. Patient is having worsening cough which is productive. Patient additionally continues to have sinus congestion and pain to palpation of that area. Constitutional Other (unable to assess ). Physical Exam Vital Signs / I&Os Vital Signs Date Time Temp Pulse Resp B/P Pulse O2 O2 Flow FiO2 Ox Delivery Rate 06/15 1039 98.4 71 18 98/63 92 Room Air 0.0 06/15 0630 99.7 72 16 119/71 92 Nasal Cannula 06/15 0320 98.4 91 20 109/58 92 06/14 2319 97.9 82 20 153/88 94 06/14 2042 2.0 06/14 2041 Nasal 2.0 Cannula 06/14 204 75 89 06/14 2030 2.0 06/14 1818 98.8 88 20 139/80 99 06/14 1440 98.8 76 16 135/78 95 I&O 06/14 0800 06/14 1600 06/15 0000 Intake Total 125 640 370 Output Total 800 400 619 Balance -675 240 -249 General Appearance Alert, Cooperative, No acute distress HEENT Atraumatic, PERRLA, Moist mucous membranes Lungs - basilar ronchi - productice cough with off white sputums Cardiovascular Regular rate and rhythm, No murmurs, gallops, rubs Abdomen Soft, No tenderness, No rebound Extremities No clubbing, No edema, Normal pulses Psych/Mental Status Mood normal, Confused Assessment and Plan Problem List 1. Sinusitis Plan - pt is still having persistent nasal congestion and rhinorrhea - no purulence noted and color is improving - will continue with the augmentin at current dose - will encourage frequent sinus hygiene 2. Dementia due to Alzheimer's disease Plan - pt has an established history of dementia - pt has no evidence of worsening delerium or worsening dementia 3. URI (upper respiratory infection) Plan - Pt has started to develop a cough on hospital day 2 - given the findings it is most likely a post nasal drip of purulent material which is causing an upper respiratory infection - will continue with augementin - daily blood work 4. Weakness Plan - will need PT assessment
--- NOTE | 2016-06-15 14:30 | Progress Note ---
Subjective General Patient seen and examined. Patient has persistent cough however it is less productive and his lung exam shows significant improvement. Patient is otherwise stable with no improving mentation Constitutional Other (unable to assess ). Physical Exam Vital Signs / I&Os Vital Signs Date Time Temp Pulse Resp B/P Pulse O2 O2 Flow FiO2 Ox Delivery Rate 06/15 1039 98.4 71 18 98/63 92 Room Air 0.0 06/15 0630 99.7 72 16 119/71 92 Nasal Cannula 06/15 0320 98.4 91 20 109/58 92 06/14 2319 97.9 82 20 153/88 94 06/14 2042 2.0 06/14 2041 Nasal 2.0 Cannula 06/14 204 75 89 06/14 2030 2.0 06/14 1818 98.8 88 20 139/80 99 06/14 1440 98.8 76 16 135/78 95 I&O 06/14 0800 06/14 1600 06/15 0000 Intake Total 125 640 370 Output Total 800 400 619 Balance -675 240 -249 General Appearance Cooperative, No acute distress HEENT PERRLA, EOMI, Moist mucous membranes Lungs Normal air movement, - less basilar ronchi, however still present Cardiovascular Regular rate and rhythm, Normal S1 and S2, No murmurs, gallops, rubs Abdomen Soft, No tenderness Extremities No clubbing, No edema, Strength = upper ext's, Strength = lower ext' s Skin No Rashes Neurological Normal speech, Cranial nerves intact Assessment and Plan Problem List 1. URI (upper respiratory infection) Plan - improved compared to the day prior - however patient is still having occasional productive cough - Pt will c/w augmentin at current dose 2. Sinusitis Plan - sinus pain is improving - rhinorrhea is clearing up as well - will c/w augmentin 3. Dementia due to Alzheimer's disease Plan - stable - making arrangements for assisted living 4. Weakness Plan - no change - will have PT evaluate the patient today
[2016-06-15 18:23] VITALS: BP 108/72
[2016-06-15 22:36] VITALS: BP 138/81
[2016-06-16 01:46] VITALS: BP 128/70
[2016-06-16 06:19] VITALS: BP 113/66
[2016-06-16 11:05] VITALS: BP 91/64
[2016-06-16] MEDS ORDERED: AMOXICILLIN/CL875 MG PO (14:11)
--- NOTE | 2016-06-16 14:12 | Provider's Discharge Care Plan ---
Problem, Goal, Plan Problem List 1. Weakness 2. Altered mental status 3. URI (upper respiratory infection) Instructions: Take meds as directed
--- NOTE | 2016-06-16 14:12 | Provider's Discharge Care Plan ---
Problem, Goal, Plan Problem List 1. Weakness 2. Altered mental status 3. URI (upper respiratory infection) Instructions: Take meds as directed
--- NOTE | 2016-06-16 14:12 | Discharge Summary ---
Discharge Summary Report Admit Date 06/13/16 Discharge Date 06/16/16 Admission Diagnosis shortness of breath and cough Discharge Diagnosis sinusitis with concomitant upper respiratory infection Brief History The patient is a 85-year-old white male with a significant past medical history of Alzheimer's dementia, COPD, who presented to [facility] emergency department secondary to complaints of recent URI symptoms, cough, weakness, and altered mental status. [facility] ER evaluation was consistent with chronic dementia with acute mental status changes, acute sinusitis, URI, and diffuse weakness. Secondary to the above, the patient was admitted by Stevenson Pringle M.D. for further evaluation and treatment. The patient apparently has experienced URI symptoms recently. The patient has had nasal congestion and cough. This has been associated with acute changes in the patient's mental status without focal neurological deficits. The patient has had history of worsening mental status in the setting of acute illnesses in the past. He has long-standing dementia mild to moderate degree. The patient had been seen in [facility] emergency department on the day prior to admission secondary to similar complaints was discharged home. His symptoms worsened with increasing mental status changes/confusion prompting reevaluation at [facility] emergency department. [facility] ER evaluation showed the patient to have vital signs of blood pressure 143/73 mmHg, pulse 98, respirations 16, temperature 98.3, O2 sat room air 100%. The patient was noted to be disoriented without other significant physical findings other than diffuse weakness. Laboratory was noncontributory. CT scan showed acute sinusitis. Secondary to the above the patient was admitted with a diagnosis of acute mental status changes, acute sinusitis, URI, and diffuse weakness for further evaluation and treatment. Hospital Course Patient was admitted for sinusitis. While patient was being treated for the aforementioned he was beginning to show signs of upper respiratory infection. At first it was presumed to be fluid overload from aggressive iv therapy. Patient was diuresed with minimal improvement. Patient was treated with antibiotics for the upper respiratory infection as well. Patient was additionally seen to require more assistance at home than what his was able to provide. Patient was seen by physical therapy who recommended that the patient go to assisted living facility. Patient will be discharged to the assisted living facility and will continue his antibiotics. Patient will follow up with his pmd within two weeks. General Appearance Alert, Oriented X3, No acute distress HEENT Mucous membran moist/pink Lungs - bilateral ronchi - productive cough Cardiovascular Normal S1, Normal S2, No murmurs Abdomen Soft, No tenderness, No hepatospenomegaly Skin No Breakdown, No Significant Lesions Discharge Instructions/Meds - finish course of antibiotics
--- NOTE | 2016-06-16 14:12 | Discharge Summary ---
Discharge Summary Report Admit Date 06/13/16 Discharge Date 06/16/16 Admission Diagnosis shortness of breath and cough Discharge Diagnosis sinusitis with concomitant upper respiratory infection Brief History The patient is a 85-year-old white male with a significant past medical history of Alzheimer's dementia, COPD, who presented to [facility] emergency department secondary to complaints of recent URI symptoms, cough, weakness, and altered mental status. [facility] ER evaluation was consistent with chronic dementia with acute mental status changes, acute sinusitis, URI, and diffuse weakness. Secondary to the above, the patient was admitted by Stevenson Pringle M.D. for further evaluation and treatment. The patient apparently has experienced URI symptoms recently. The patient has had nasal congestion and cough. This has been associated with acute changes in the patient's mental status without focal neurological deficits. The patient has had history of worsening mental status in the setting of acute illnesses in the past. He has long-standing dementia mild to moderate degree. The patient had been seen in [facility] emergency department on the day prior to admission secondary to similar complaints was discharged home. His symptoms worsened with increasing mental status changes/confusion prompting reevaluation at [facility] emergency department. [facility] ER evaluation showed the patient to have vital signs of blood pressure 143/73 mmHg, pulse 98, respirations 16, temperature 98.3, O2 sat room air 100%. The patient was noted to be disoriented without other significant physical findings other than diffuse weakness. Laboratory was noncontributory. CT scan showed acute sinusitis. Secondary to the above the patient was admitted with a diagnosis of acute mental status changes, acute sinusitis, URI, and diffuse weakness for further evaluation and treatment. Hospital Course Patient was admitted for sinusitis. While patient was being treated for the aforementioned he was beginning to show signs of upper respiratory infection. At first it was presumed to be fluid overload from aggressive iv therapy. Patient was diuresed with minimal improvement. Patient was treated with antibiotics for the upper respiratory infection as well. Patient was additionally seen to require more assistance at home than what his was able to provide. Patient was seen by physical therapy who recommended that the patient go to assisted living facility. Patient will be discharged to the assisted living facility and will continue his antibiotics. Patient will follow up with his pmd within two weeks. General Appearance Alert, Oriented X3, No acute distress HEENT Mucous membran moist/pink Lungs - bilateral ronchi - productive cough Cardiovascular Normal S1, Normal S2, No murmurs Abdomen Soft, No tenderness, No hepatospenomegaly Skin No Breakdown, No Significant Lesions Discharge Instructions/Meds - finish course of antibiotics
== END 2016-06-16 15:20 | DRG 153 ==
LOC: ED SRH 21:57 → TRANS SRH 06-12 01:07 → ACUTE2 SRH 06-12 01:48
PROVIDERS: ADMIT Internal Medicine
DX: J01.00 Acute maxillary sinusitis, unspecified (principal); J06.9 Acute upper respiratory infection, unspecified; E87.1 Hypo-osmolality and hyponatremia; F05 Delirium due to known physiological condition; J44.9 Chronic obstructive pulmonary disease, unspecified; G30.9 Alzheimer's disease, unspecified; F02.80 Dementia in other diseases classified elsewhere, unspecified severity, without behavioral disturbance, psychotic disturbance, mood disturbance, and anxiety
CPT/HCPCS: 29230; 85241; 90004; 90047; 90065; 90074; 90098; 90100; 90112; 91295; 91400; 91576; 92031; 92720; 93004; 93140; 94060; 95059; 95061

== ENCOUNTER 2016-10-07 09:16 | Emergency (ER) | payer OTHER ==
[~2016-10-07 09:16] MED LIST changes: +AMOXICILLIN/CL875 MG PO; +TAMSULOSIN HCL0.4 MG PO
--- NOTE | 2016-10-07 11:17 | DIAGNOSTIC IMAGING REPORT ---
PROCEDURE: XR CHEST 2 VIEW INDICATION: SYNCOPE TECHNIQUE: Two views COMPARISON: 06/11/2016 FINDINGS: The cardiomediastinal contour is normal. No central venous congestion. The lungs hyperinflated and there is minimal horizontal atelectatic change/scarring at both lung bases, left worse than right. The upper lungs are clear. The osseous structures are intact. IMPRESSION: 1. Bibasilar scarring. No acute disease. 2. Mild hyperinflation.
--- NOTE | 2016-10-07 12:58 | ED NURSING NOTES ---
Clinical Report - Nurses [facility] [address] [place] [address] 10/07/2016 9:17 Patient: AURELIANO FARRELL TRIAGE Triage time 09:15 Oct 07 2016. Acuity: LEVEL 3. Chief Complaint: ALTERED MENTAL STATUS and CONFUSED. Alert. SARAH COMA SCORE: [place] Coma Scale: 15- eyes open spontaneously (4); best verbal response- oriented x 4 (5); best motor response- obeys commands (6). --09:37 Felipe Christianson R.N. 09:19 10/07/16. BP: 109/54. HR: 50. RR: 16. O2 saturation: 100%. Temp: 97.2 F (temporal). Pain level now not taken due to patient condition: cannot qualify. --09:37 Felipe Christianson R.N. Weight: 68 kg stated. Height/Length: 67 inches Estimated. BMI: 23.5. --09:26 Felipe Christianson R.N. Medications Mamarterin hydrochloride. Tamsulosin HCl Oral. --09:34 Felipe Christianson R.N. Medication/allergy information source: the patient. --09:37 Felipe Christianson R.N. Allergies No Known Drug Allergy. --09:34 Felipe Christianson R.N. History Arrived by EMS. Historian: patient. Accompanied by family. ( Decreased LOC today. states that pt started drooling this AM while they were getting coffee. Then he became unresponsive and he was lowered to the floor in anticipation of possibly doing CPR and then he came around.). This started just prior to arrival and today about 1 hour ago. 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 PAST MEDICAL HX: Immunizations: up-to-date. SOCIAL HX: Former smoker, end date 1966. No alcohol use or drug use. No infectious disease exposure. ABUSE ASSESSMENT: No report of abuse. FALL RISK ASSESSMENT: Fall risk assessment completed. No fall risk identified. NUTRITIONAL RISK ASSESSMENT: The nutritional risk assessment revealed no deficiencies. FUNCTIONAL ASSESSMENT: Functional assessment: no impairments noted. LEARNING NEEDS ASSESSMENT: The learning needs assessment revealed no barriers. SKIN INTEGRITY ASSESSMENT: Skin integrity risk assessment completed. No skin integrity risk identified. --09:37 Felipe Christianson R.N. PROBLEMS: URI. Hyponatremia. Diarrhea. Gastroenteritis. Weakness. Hypotension. Hypovolemia. Lung Disease. Dementia. Hematuria. COPD - Chronic Obstructive Pulmonary Disease. --09:36 Felipe Christianson R.N. Interventions ID band on patient. To room. --09:37 Felipe Christianson R.N. PHYSICAL ASSESSMENT To room via stretcher. GENERAL / NEURO / PSYCH: Alert. Oriented X 4. Patient appears neat and clean. HEENT: Pupils equal, round and reactive to light. RESPIRATORY: Respirations not labored. CVS: Cardiac rhythm: sinus bradycardia. GI / : Abdomen soft. Bowel sounds within normal limits. SKIN: Skin is warm and dry. Poor skin turgor. --09:37 Felipe Christianson R.N. NURSING PROGRESS NOTES Patient gowned. Reassurance given to the patient's family. Patient identifiers checked. Call light placed in reach. Side rails up. Bed placed in lowest position. Brakes of bed on. Patient ready for evaluation- chart flagged and ED physician notified. --09:38 Felipe Christianson R.N. 09:16 10/07/2016 Site #1 started prior to arrival by EMS via IV in the left antecubital space with an 18g angiocath, with aseptic technique and good blood return. --10:22 Felipe Christianson R.N. 10:16 10/07/2016 Started bag #1 1000 mL IV Fluids IV NS (Saline); at 200 mL/hr over 5 hour(s) via site #1 via IV pump. Allergies verified and confirmed 5 rights. IV patency established. IV site checked: no pain, redness, or swelling. IV flushed thoroughly pre- and post-medication administration (200mL given in field out of bag # 1 CNC PROGRAMMER). --10:27 Felipe Christianson R.N. EKG time: (1105). EKG was ordered, performed by a tech and shown to the ED physician. --11:09 Karen Watters 10:00 10/07/16. BP: 120/61. HR: 49. RR: 16. O2 saturation: 97% on room air. Pain level now: 0/10. --12:20 Felipe Christianson R.N. --12:31 Felipe Christianson R.N. 10:30 10/07/16. BP: 126/68. HR: 54. RR: 15. O2 saturation: 96% on room air. Pain level now: 0/10. --12:31 Felipe Christianson R.N. 12:29 10/07/16. BP: 100/62 taken on the right arm, while standing. HR: 66. --12:41 Moira Carlos R.N. <<STRICKEN ENTRY-- 12:25 10/07/16. BP: 129/60 taken while sitting. HR: 50. --12:43 Moira Carlos R.N. --END STRIKE>> Change to Details. --12:44 Moira Carlos R.N. 12:27 10/07/16. BP: 125/68 taken while sitting. HR: 53. --12:44 Moira Carlos R.N. 12:25 10/07/16. BP: 129/60 taken while lying. HR: 50. --12:45 Moira Carlos R.N. 12:30 10/07/16. Checked patient name, birthdate and medical record number: family confirmed. Clean catch urine collected with return of yellow-colored clear urine; odor is normal; sample sent to lab for urinalysis and culture. Specimen labeled in the presence of the patient. --12:48 Felipe Christianson R.N. 13:35. The patient is calm. Overall patient status is the same- he states feels the same (family at bedside). GENERAL / NEURO / PSYCH: Patient is calm and cooperative. Alert. RESPIRATORY: No respiratory distress. SKIN: Skin is warm and dry. --13:46 Miya Soriano R.N. DISPOSITION / DISCHARGE 13:35 10/07/2016 Bactrim DS (Sulfamethoxazole-TMP DS) PO Tablets 2 tab given. Allergies verified and confirmed 5 rights. --13:40 Miya Soriano R.N. 13:35 10/07/16. BP: 139/72. HR: 56. RR: 11. O2 saturation: 100%. Pain level now: 0/10. --13:45 Miya Soriano R.N. Departure time: 1335. Condition at departure: improved and stable. Fall risk assessment completed. Risk factors identified include patient age greater than 65 years and impairment of mobility and cognition. No learning barriers present. Teaching performed with the family. Discharge instructions provided and reviewed with the spouse. Reviewed medication(s) (script called to [facility] in [place]). Spouse and family verbalized understanding. Written instructions provided in Ukrainian. The patient was discharged home and accompanied by family. He left the Emergency Department ambulatory and via private vehicle. Family member driving. --13:45 Miya Soriano R.N. 13:35 10/07/2016 Site #1 removed (pt pulled out the IV earlier). --13:46 Miya Soriano R.N. Locked/Released at 10/07/2016 13:47 by Miya Soriano R.N.
--- NOTE | 2016-10-07 12:58 | ED ORDER SUMMARY ---
..... Patient: AURELIANO FARRELL OrderSheet [facility] VisitID: [id number] [place] [address] 85y, M Registration Date/Time: 10/07/2016 ORDER SHEET Weight: 68 kg (stated) Allergies: No Known Drug Allergy GENERAL ORDERS: CMP Urgent (09:40 10/07/2016 Angela R.N. verbal order read back to Johanna LYNN) (Ack 9:42 KHoerner) (10:27 Angela R.N.) CBC w Diff Urgent (09:40 10/07/2016 Angela R.N. verbal order read back to Johanna LYNN) (Ack 9:42 KHoerner) (10:27 Angela R.N.) Chest 2V Urgent (10:39 10/07/2016 Johanna LYNN) (Ack 10:48 KHoerner) (10:57 KHoerner) Chief Service Dispatcher (Continuous) (10:39 10/07/2016 Johanna LYNN) (11:54 Angela R.N.) UA-Culture if indicated Urgent (10:39 10/07/2016 Johanna LYNN) (Ack 10:48 ALETAoerner) (12:48 Angela R.N.) CPK Urgent (10:39 10/07/2016 Johanna LYNN) (Ack 10:48 KHoerner) (11:54 Angela R.N.) Troponin-I Urgent (10:39 10/07/2016 Johanna LYNN) (Ack 10:48 ALETAoerner) (11:54 Angela R.N.) TSH Urgent (10:39 10/07/2016 Johanna LYNN) (Ack 10:48 KHoerner) (11:54 Angela R.N.) Pulse oximeter (10:39 10/07/2016 Johanna LYNN) (11:54 Angela R.N.) EKG - ER Stat (10:39 10/07/2016 Johanna LYNN) (11:08 OHernandez) - (orthostatic BP/P) (10:39 10/07/2016 Johanna LYNN) (11:57 Jae) MEDICATION ORDERS: Bactrim DS PO (Tablet 800-160 mg) 2 tabs (NOW) (12:52 10/07/2016 Johanna LYNN) (Ack 13:26 China Brown) (13:40 China Brown) IV FLUIDS: IV NS : initial bolus none -, then 200 mL/hr (NOW) (09:39 10/07/2016 Angela Brown verbal order read back to Johanna LYNN) (10:27 Angela Brown) ORDER SHEET NOTES: [Electronically signed by Miya Soriano R.N. (13:47 10/07/2016)] [Electronically signed by Avtar Ballard MD (21:42 10/07/2016)] [Electronically locked/signed by Miya Soriano R.N. (13:47 10/07/2016)]
--- NOTE | 2016-10-07 12:58 | ED NURSING NOTES ---
Clinical Report - Nurses [facility] [address] [place] [address] 10/07/2016 9:17 Patient: AURELIANO FARRELL TRIAGE Triage time 09:15 Oct 07 2016. Acuity: LEVEL 3. Chief Complaint: ALTERED MENTAL STATUS and CONFUSED. Alert. SARAH COMA SCORE: [place] Coma Scale: 15- eyes open spontaneously (4); best verbal response- oriented x 4 (5); best motor response- obeys commands (6). --09:37 Felipe Christianson R.N. 09:19 10/07/16. BP: 109/54. HR: 50. RR: 16. O2 saturation: 100%. Temp: 97.2 F (temporal). Pain level now not taken due to patient condition: cannot qualify. --09:37 Felipe Christianson R.N. Weight: 68 kg stated. Height/Length: 67 inches Estimated. BMI: 23.5. --09:26 Felipe Christianson R.N. Medications Mamarterin hydrochloride. Tamsulosin HCl Oral. --09:34 Felipe Christianson R.N. Medication/allergy information source: the patient. --09:37 Felipe Christianson R.N. Allergies No Known Drug Allergy. --09:34 Felipe Christianson R.N. History Arrived by EMS. Historian: patient. Accompanied by family. ( Decreased LOC today. states that pt started drooling this AM while they were getting coffee. Then he became unresponsive and he was lowered to the floor in anticipation of possibly doing CPR and then he came around.). This started just prior to arrival and today about 1 hour ago. 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 PAST MEDICAL HX: Immunizations: up-to-date. SOCIAL HX: Former smoker, end date 1966. No alcohol use or drug use. No infectious disease exposure. ABUSE ASSESSMENT: No report of abuse. FALL RISK ASSESSMENT: Fall risk assessment completed. No fall risk identified. NUTRITIONAL RISK ASSESSMENT: The nutritional risk assessment revealed no deficiencies. FUNCTIONAL ASSESSMENT: Functional assessment: no impairments noted. LEARNING NEEDS ASSESSMENT: The learning needs assessment revealed no barriers. SKIN INTEGRITY ASSESSMENT: Skin integrity risk assessment completed. No skin integrity risk identified. --09:37 Felipe Christianson R.N. PROBLEMS: URI. Hyponatremia. Diarrhea. Gastroenteritis. Weakness. Hypotension. Hypovolemia. Lung Disease. Dementia. Hematuria. COPD - Chronic Obstructive Pulmonary Disease. --09:36 Felipe Christianson R.N. Interventions ID band on patient. To room. --09:37 Felipe Christianson R.N. PHYSICAL ASSESSMENT To room via stretcher. GENERAL / NEURO / PSYCH: Alert. Oriented X 4. Patient appears neat and clean. HEENT: Pupils equal, round and reactive to light. RESPIRATORY: Respirations not labored. CVS: Cardiac rhythm: sinus bradycardia. GI / : Abdomen soft. Bowel sounds within normal limits. SKIN: Skin is warm and dry. Poor skin turgor. --09:37 Felipe Christianson R.N. NURSING PROGRESS NOTES Patient gowned. Reassurance given to the patient's family. Patient identifiers checked. Call light placed in reach. Side rails up. Bed placed in lowest position. Brakes of bed on. Patient ready for evaluation- chart flagged and ED physician notified. --09:38 Felipe Christianson R.N. 09:16 10/07/2016 Site #1 started prior to arrival by EMS via IV in the left antecubital space with an 18g angiocath, with aseptic technique and good blood return. --10:22 Felipe Christianson R.N. 10:16 10/07/2016 Started bag #1 1000 mL IV Fluids IV NS (Saline); at 200 mL/hr over 5 hour(s) via site #1 via IV pump. Allergies verified and confirmed 5 rights. IV patency established. IV site checked: no pain, redness, or swelling. IV flushed thoroughly pre- and post-medication administration (200mL given in field out of bag # 1 MANUFACTURING AREA MANAGER). --10:27 Felipe Christianson R.N. EKG time: (1105). EKG was ordered, performed by a tech and shown to the ED physician. --11:09 Kraen Watters 10:00 10/07/16. BP: 120/61. HR: 49. RR: 16. O2 saturation: 97% on room air. Pain level now: 0/10. --12:20 Felipe Christianson R.N. --12:31 Felipe Christianson R.N. 10:30 10/07/16. BP: 126/68. HR: 54. RR: 15. O2 saturation: 96% on room air. Pain level now: 0/10. --12:31 Felipe Christianson R.N. 12:29 10/07/16. BP: 100/62 taken on the right arm, while standing. HR: 66. --12:41 Moira Carlos R.N. <<STRICKEN ENTRY-- 12:25 10/07/16. BP: 129/60 taken while sitting. HR: 50. --12:43 Moira Carlos R.N. --END STRIKE>> Change to Details. --12:44 Moira Carlos R.N. 12:27 10/07/16. BP: 125/68 taken while sitting. HR: 53. --12:44 Moira Carlos R.N. 12:25 10/07/16. BP: 129/60 taken while lying. HR: 50. --12:45 Moira Carlos R.N. 12:30 10/07/16. Checked patient name, birthdate and medical record number: family confirmed. Clean catch urine collected with return of yellow-colored clear urine; odor is normal; sample sent to lab for urinalysis and culture. Specimen labeled in the presence of the patient. --12:48 Felipe Christianson R.N. 13:35. The patient is calm. Overall patient status is the same- he states feels the same (family at bedside). GENERAL / NEURO / PSYCH: Patient is calm and cooperative. Alert. RESPIRATORY: No respiratory distress. SKIN: Skin is warm and dry. --13:46 Miya Soriano R.N. DISPOSITION / DISCHARGE 13:35 10/07/2016 Bactrim DS (Sulfamethoxazole-TMP DS) PO Tablets 2 tab given. Allergies verified and confirmed 5 rights. --13:40 Miya Soriano R.N. 13:35 10/07/16. BP: 139/72. HR: 56. RR: 11. O2 saturation: 100%. Pain level now: 0/10. --13:45 Miya Soriano R.N. Departure time: 1335. Condition at departure: improved and stable. Fall risk assessment completed. Risk factors identified include patient age greater than 65 years and impairment of mobility and cognition. No learning barriers present. Teaching performed with the family. Discharge instructions provided and reviewed with the spouse. Reviewed medication(s) (script called to [facility] in [place]). Spouse and family verbalized understanding. Written instructions provided in Polish. The patient was discharged home and accompanied by family. He left the Emergency Department ambulatory and via private vehicle. Family member driving. --13:45 Miya Soriano R.N. 13:35 10/07/2016 Site #1 removed (pt pulled out the IV earlier). --13:46 Miya Soriano R.N. Locked/Released at 10/07/2016 13:47 by Miya Soriano R.N.
--- NOTE | 2016-10-07 12:58 | ED CLINICAL REPORT ---
Clinical Report - Physicians/Mid Levels [facility] [address] [place] [address] 10/07/2016 9:17 Patient: AURELIANO FARRELL Time Seen: 10:25 Oct 07 2016. Historian- patient. CPT: ER phys charges level 4 plus (#[id number]). EKG interpretation (#[id number]). HISTORY OF PRESENT ILLNESS Chief Complaint: CHANGED MENTAL STATUS. NO new symptoms to report. Has felt well the past several days. The patient was found unresponsive. (Drinking coffee while at the table and became unresponsive.). This started just prior to arrival, is now gone and patient was witnessed to be last known well (when got up this morning.). The patient was found unresponsive. History of chronic dementia. No weakness, numbness or recent fall. No difficulty walking. Usually has normal mobility. He is usually alert, oriented x3 and alert but confused; he usually walks without assistance. (Lives at home with .). Similar symptoms previously: Once, as bad (5 months ago). ( Family says this happens with either low sodium or an infection.). Hospitalized. Evaluation/treatment: x-rays and labs. Diagnosis: (Low sodium.). Recent medical care: Not recently seen/assessed. REVIEW OF SYSTEMS No fever, headache, head injury or dizziness. No chest pain or pain, difficulty breathing, cough or sputum production. No sore throat or throat, abdominal pain, nausea or diarrhea. No black stools, difficulty with urination, skin rash, vomiting or bloody stools. No chills, fever, calf pain, cough or difficulty breathing. No pedal edema, palpitations, weakness, diabetic symptoms or easy bruising. All systems otherwise negative, except as recorded above. PAST HISTORY ( URI. Hyponatremia. Diarrhea. Gastroenteritis. Weakness. Hypotension. Hypovolemia. Lung Disease. Dementia. Hematuria. COPD - Chronic Obstructive Pulmonary Disease.). SOCIAL HISTORY Former smoker. No alcohol use or drug use. ADDITIONAL NOTES The nursing notes have been reviewed. PHYSICAL EXAM Vital Signs: 10/07/2016 09:19 BP: 109/54. HR: 50. RR: 16. O2 saturation: 100%. Temp: 97.2 F. Appearance: Alert. No acute distress. Head: Head atraumatic. Eyes: Pupils equal, round and reactive to light. ENT: Normal ENT inspection. Airway intact. Moist mucous membranes. Pharynx normal. Neck: Normal inspection. Neck supple. No meningeal signs, carotid bruit or lymphadenopathy. CVS: Normal heart rate and rhythm. Heart sounds normal. Pulses normal. No cardiac murmur. Respiratory: No respiratory distress. Mildly decreased air movement diffusely over both lungs. Abdomen: Soft and nontender. Back: Normal inspection. Skin: Skin warm. Normal skin color. No rash. Extremities: Extremities exhibit normal ROM. No lower extremity edema. No calf tenderness. No lower extremity edema. Neuro: Alert. The patient is disoriented. Mood/affect normal. Speech normal. Cranial nerves normal (as tested). No cerebellar findings. No motor deficit. No sensory deficit. Reflexes normal. LABS, X-RAYS, AND EKG EKG: No acute ischemia. Normal sinus rhythm. Rate: 52. Bradycardia. Normal P waves. Normal AUREA. Normal QRS complex. Normal axis. Non-specific ST segment / T wave abnormalities. EKG unchanged when compared with prior EKG. The study has been interpreted contemporaneously. The study has been independently viewed by me. The EKG appears to be a good tracing. Chest X-ray: No acute disease. (Bibasialr scarring). Views: PA and lateral. Technique: good. The X-rays were independently viewed by me and interpreted by the radiologist. Laboratory Tests: CBC w Diff: (CODY: 10/07/2016 09:35) ( MsgRcvd 10/07/2016 09:49) Final results Test Result Flag Units (Reference) WHITE BLOOD COUNT 4.7 K/uL (4.5-11.5) RED BLOOD COUNT 4.22 L M/uL (4.50-5.90) HEMOGLOBIN 13.0 L gm/dL (13.5-17.5) HEMATOCRIT 38.4 L % (41.0-53.0) MEAN CELL VOLUME 91 fL (80-100) MEAN CORPUSCULAR HGB 31 pg (26-34) MEAN CORPUSCULAR HGB CONC 34 g/dL (31-37) RED CELL DISTRIBUTION WIDTH 14.4 % (11.6-14.8) PLATELET COUNT 267 K/uL (150-400) NEUTROPHIL % 72.1 % (50-75) LYMPH % 19.9 L % (25-40) MONO % 7.2 % (3-14) EOSINOPHIL % 0.4 % (0-4) BASOPHIL % 0.4 % (0-2) CPK: (CODY: 10/07/2016 09:35) ( [facility] 10/07/2016 11:45) Final results Test Result Flag Units (Reference) CPK 84 U/L (24-260) TROPONIN I <0.05 ng/mL (0.00-1.5) TROPONIN REFERENCE RANGE:<0.1 NEGATIVE0.1-1.5 INDETERMINANT>1.5 POSITIVE THYROID STIMULATING HORMONE 8.916 H uIU/mL (0.30-3.74) CMP: (CODY: 10/07/2016 09:35) ( [facility] 10/07/2016 10:04) Final results Test Result Flag Units (Reference) GLUCOSE 92 mg/dL (70-110) BUN 15 mg/dL (7-18) CREATININE 1.1 mg/dL (0.6-1.3) Estimated GFR >60 mL/min Estimated GFR- >60 mL/min Note: Persistent reduction over 3 months in eGFR<60 mL/min/1.73 m2 defines CKD. Patients with eGFR values>=60 mL/min/1.73 m2 may also have CKD if evidence ofpersistent proteinuria. Additional information may be foundat www.kidney.org. SODIUM 135 L mmol/L (136-145) POTASSIUM 4.1 mmol/L (3.5-5.1) CHLORIDE 98 mmol/L (98-107) CARBON DIOXIDE 26 mmol/L (21-32) CALCIUM 8.9 mg/dL (8.5-10.1) TOTAL PROTEIN 6.6 g/dL (6.4-8.2) ALBUMIN 3.8 g/dL (3.3-5.0) BILIRUBIN, TOTAL 0.4 mg/dL (0.0-1.0) ALKALINE PHOSPHATASE 45 L U/L (46-116) AST (SGOT) 19 U/L (15-37) ALT (SGPT) 24 U/L (12-78) . PROGRESS AND PROCEDURES Course of Care: IV NS Orthostatics positive. RN states 750 cc NS given before patient pulled IV out. Patient/family counseled. Disposition: Discharged. Condition: stable and improved. CLINICAL IMPRESSION Common, postural syncope .12 lead EKG performed. Dehydration Bradycardia Mild hypothyroidism UTI. INSTRUCTIONS Drink plenty of fluids. (Call back with medications list.). Warnings: Further evaluation is necessary. GENERAL WARNINGS: Return or contact your physician immediately if your condition worsens or changes unexpectedly, if not improving as expected, or if other problems arise. Prescription Medications: Bactrim DS 800 mg / 160 mg: Take 1 tablet orally every 12 hours for 7 days. Dispense fourteen (14). No refills. Substitution is permissible. Follow-up: Follow up with your doctor in one week. Call for an appointment. Understanding of the discharge instructions verbalized by patient and family. (Electronically signed by Avtar Ballard MD 10/07/2016 21:42)
--- NOTE | 2016-10-07 12:58 | ED ORDER SUMMARY ---
..... Patient: AURELIANO FARRELL OrderSheet [facility] VisitID: [id number] [place] [address] 85y, M Registration Date/Time: 10/07/2016 ORDER SHEET Weight: 68 kg (stated) Allergies: No Known Drug Allergy GENERAL ORDERS: CMP Urgent (09:40 10/07/2016 Angela R.N. verbal order read back to Johanna LYNN) (Ack 9:42 KHoerner) (10:27 Angela R.N.) CBC w Diff Urgent (09:40 10/07/2016 Angela R.N. verbal order read back to Johanna LYNN) (Ack 9:42 KHoerner) (10:27 Angela R.N.) Chest 2V Urgent (10:39 10/07/2016 Johanna LYNN) (Ack 10:48 KHoerner) (10:57 KHoerner) Section Plotter Operator (Continuous) (10:39 10/07/2016 Johanna LYNN) (11:54 Angela R.N.) UA-Culture if indicated Urgent (10:39 10/07/2016 Johanna LYNN) (Ack 10:48 ALETAoerner) (12:48 Angela R.N.) CPK Urgent (10:39 10/07/2016 Johanna LYNN) (Ack 10:48 KHoerner) (11:54 Angela R.N.) Troponin-I Urgent (10:39 10/07/2016 Johanna LYNN) (Ack 10:48 ALETAoerner) (11:54 Angela R.N.) TSH Urgent (10:39 10/07/2016 Johanna LYNN) (Ack 10:48 KHoerner) (11:54 Angela R.N.) Pulse oximeter (10:39 10/07/2016 Johanna LYNN) (11:54 Angela R.N.) EKG - ER Stat (10:39 10/07/2016 Johanna LYNN) (11:08 OHernandez) - (orthostatic BP/P) (10:39 10/07/2016 Johanna LYNN) (11:57 Jae) MEDICATION ORDERS: Bactrim DS PO (Tablet 800-160 mg) 2 tabs (NOW) (12:52 10/07/2016 Johanna LYNN) (Ack 13:26 China Brown) (13:40 China Brown) IV FLUIDS: IV NS : initial bolus none -, then 200 mL/hr (NOW) (09:39 10/07/2016 Angela Brown verbal order read back to Johanna LYNN) (10:27 Angela Brown) ORDER SHEET NOTES: [Electronically signed by Miya Soriano R.N. (13:47 10/07/2016)] [Electronically signed by Avtar Ballard MD (21:42 10/07/2016)] [Electronically locked/signed by Miya Soriano R.N. (13:47 10/07/2016)]
--- NOTE | 2016-10-07 21:43 | ED DISCHARGE INSTRUCTIONS ---
Patient: AURELIANO FARRELL General Instructions [facility] VisitID: [id number] [address] [place] [address] 85y, M Registration Date/Time: 10/07/2016 Common, postural syncope .12 lead EKG performed. Dehydration Bradycardia Mild hypothyroidism UTI. INSTRUCTIONS Drink plenty of fluids. (Call back with medications list.). Warnings: Further evaluation is necessary. GENERAL WARNINGS: Return or contact your physician immediately if your condition worsens or changes unexpectedly, if not improving as expected, or if other problems arise. Prescription Medications: Bactrim DS 800 mg / 160 mg: Take 1 tablet orally every 12 hours for 7 days. Dispense fourteen (14). No refills. Substitution is permissible. Follow-up: Follow up with your doctor in one week. Call for an appointment. Understanding of the discharge instructions verbalized by patient and family. (Electronically signed by Avtar Ballard MD 10/07/2016 21:42)
--- NOTE | 2016-10-07 21:43 | ED MED RECONCILIATION SUMMARY ---
Patient: AURELIANO FARRELL Medication Reconciliation Report [facility] VisitID: [id number] [address] [place] [address] 85y, M Registration Date/Time: 10/07/2016 Weight: 68 kg Height/Length: 67 in. BMI: 23.5 ALLERGIES: No Known Drug Allergy The patient's Home Medications are listed below: THE FOLLOWING MEDICATIONS NEED TO BE RECONCILED: Mamarterin hydrochloride Tamsulosin HCl Oral The source(s) of the original Home Medication information: patient The following Medications were given to the patient in the Emergency Department: IV NS IV Fluids bolus 0, then 200 mL/hr, administered: 10/07/2016 10:16:00 AM Bactrim DS [PO] PO 2 tab, administered: 10/07/2016 1:35:00 PM The following Medications were prescribed to the patient: Bactrim DS 800 mg / 160 mg: Take 1 tablet orally every 12 hours for 7 days. Dispense fourteen (14). No refills. Substitution is permissible. -- Avtar Ballard MD
--- NOTE | 2016-10-07 21:43 | ED MAR SUMMARY ---
..... Medication Administration Record [facility] [address] [place] [address] Patient: AURELIANO FARRELL Visit ID: [id number] 85y, M Weight: 68.0 kg Height/Length: 67 in BMI: 23.5 ALLERGIES: No Known Drug Allergy Start 10:16 10/07/2016 Felipe Christianson RTasiaNTasia Medication Administered: IV NS (SALINE), Dose: IV Fluids over 5 hour(s), Rate: 200 mL/hr, Dispensed: 1000 mL bag, Site: #1 left AC. Medication Ordered: IV NS : initial bolus none -, then 200 mL/hr (NOW). Given 13:35 10/07/2016 Miya Soriano R.N. Medication Administered: BACTRIM DS [PO] (SULFAMETHOXAZOLE-TMP DS), Dose: 2 tab Tablets PO. Medication Ordered: Bactrim DS PO (Tablet 800-160 mg) 2 tabs (NOW).
--- NOTE | 2016-10-07 21:43 | ED MAR SUMMARY ---
..... Medication Administration Record [facility] [address] [place] [address] Patient: AURELIANO FARRELL Visit ID: [id number] 85y, M Weight: 68.0 kg Height/Length: 67 in BMI: 23.5 ALLERGIES: No Known Drug Allergy Start 10:16 10/07/2016 Felipe Christianson RTasiaNTasia Medication Administered: IV NS (SALINE), Dose: IV Fluids over 5 hour(s), Rate: 200 mL/hr, Dispensed: 1000 mL bag, Site: #1 left AC. Medication Ordered: IV NS : initial bolus none -, then 200 mL/hr (NOW). Given 13:35 10/07/2016 Miya Soriano R.N. Medication Administered: BACTRIM DS [PO] (SULFAMETHOXAZOLE-TMP DS), Dose: 2 tab Tablets PO. Medication Ordered: Bactrim DS PO (Tablet 800-160 mg) 2 tabs (NOW).
--- NOTE | 2016-10-07 21:43 | ED DISCHARGE INSTRUCTIONS ---
Patient: AURELIANO FARRELL General Instructions [facility] VisitID: [id number] [address] [place] [address] 85y, M Registration Date/Time: 10/07/2016 Common, postural syncope .12 lead EKG performed. Dehydration Bradycardia Mild hypothyroidism UTI. INSTRUCTIONS Drink plenty of fluids. (Call back with medications list.). Warnings: Further evaluation is necessary. GENERAL WARNINGS: Return or contact your physician immediately if your condition worsens or changes unexpectedly, if not improving as expected, or if other problems arise. Prescription Medications: Bactrim DS 800 mg / 160 mg: Take 1 tablet orally every 12 hours for 7 days. Dispense fourteen (14). No refills. Substitution is permissible. Follow-up: Follow up with your doctor in one week. Call for an appointment. Understanding of the discharge instructions verbalized by patient and family. (Electronically signed by Avtar Ballard MD 10/07/2016 21:42)
--- NOTE | 2016-10-07 21:43 | ED MED RECONCILIATION SUMMARY ---
Patient: AURELIANO FARRELL Medication Reconciliation Report VisitID: [id number] [address] [place] [address] 85y, M Registration Date/Time: 10/07/2016 Weight: 68 kg Height/Length: 67 in. BMI: 23.5 ALLERGIES: No Known Drug Allergy The patient's Home Medications are listed below: THE FOLLOWING MEDICATIONS NEED TO BE RECONCILED: Mamarterin hydrochloride Tamsulosin HCl Oral The source(s) of the original Home Medication information: patient The following Medications were given to the patient in the Emergency Department: IV NS IV Fluids bolus 0, then 200 mL/hr, administered: 10/07/2016 10:16:00 AM Bactrim DS [PO] PO 2 tab, administered: 10/07/2016 1:35:00 PM The following Medications were prescribed to the patient: Bactrim DS 800 mg / 160 mg: Take 1 tablet orally every 12 hours for 7 days. Dispense fourteen (14). No refills. Substitution is permissible. -- Avtar Ballard MD
== END 2016-10-07 13:35 | disposition home or self-care (01) ==
LOC: ED SRH 09:16
DX: R55 Syncope and collapse (principal); N39.0 Urinary tract infection, site not specified; B96.89 Other specified bacterial agents as the cause of diseases classified elsewhere; E86.0 Dehydration; E03.9 Hypothyroidism, unspecified; R00.1 Bradycardia, unspecified; J44.9 Chronic obstructive pulmonary disease, unspecified; F03.90 Unspecified dementia, unspecified severity, without behavioral disturbance, psychotic disturbance, mood disturbance, and anxiety; Z87.891 Personal history of nicotine dependence
CPT/HCPCS: 90004; 90100; 90469; 90616; 92610; 93140; 95059

== ENCOUNTER 2016-11-05 21:04 | Inpatient (IN) | payer OTHER ==
[~2016-11-05] VITALS: Ht 172.7 cm; Wt 60.7 kg
--- NOTE | 2016-11-05 21:34 | DIAGNOSTIC IMAGING REPORT ---
PROCEDURE: CT HEAD WITHOUT CONTRAST INDICATION: STROKE TECHNIQUE: Noncontrast axial images with sagittal and coronal reformations. COMPARISON: Compared to a head CT and 06/11/2016. FINDINGS: There is a 4.5 x3.2 x 2.5 cm intraparenchymal hemorrhage in the right frontal lobe associated with small amount of subarachnoid hemorrhage. Mild to moderate mass effect, but no evidence of midline shift and no evidence of hydrocephalous. There is evidence of moderate old small vessel disease with mild atrophic changes. Sinuses and mastoids are normal. IMPRESSION: 1. There is a 4.5 x 3.2 x 2.5 cm intraparenchymal hemorrhage in the right frontal lobe with small subarachnoid hemorrhage. Associated mild to moderate mass effect, but no evidence of midline shift. 2. 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 3. Findings discussed with the Marquise Lantigua at [address] scans at this facility use dose modulation, iterative reconstruction, and/or weight-based dosing when appropriate to reduce radiation dose to as low as reasonably achievable.
--- NOTE | 2016-11-05 21:54 | ED ORDER SUMMARY ---
..... Patient: AURELIANO FARRELL OrderSheet [facility] VisitID: [id number] [place] [address] 86y, M Registration Date/Time: 11/05/2016 ORDER SHEET Weight: 64.5 kg (measured) Allergies: Combivent GENERAL ORDERS: CT Head wo Cont Urgent (21:11/05/2016 Deshawn ER Trolley Operator verbal order read back to Karin Land) (Ack 21:09 Deshawn ER Trolley Operator) (21:21 MCampbell) Stroke Panel Stat (21:11/05/2016 Karin Land) (Ack 21:26 Deshawn ER Trolley Operator) (21:34 JLake RTasiaN.) EKG - ER Stat (21:11/05/2016 Karin Land) (21:25 CHategekimana) MEDICATION ORDERS: IV FLUIDS: IV Saline Lock (21:09 11/05/2016 Karin Land) (21:35 JQubrandi R.N.) ORDER SHEET NOTES: [Electronically signed by Marquise Lantigua Dr. (00:56 11/06/2016)] [Electronically signed by Janee Zhao (01:16 11/06/2016)] [Electronically locked/signed by Janee Zhao (01:16 11/06/2016)]
--- NOTE | 2016-11-05 21:54 | ED NURSING NOTES ---
Clinical Report - Nurses [facility] [address] [place] [address] 11/05/2016 21:06 Patient: AURELIANO FARRELL TRIAGE Triage time 21:Nov 05 2016. Acuity: LEVEL 2. Chief Complaint: WEAKNESS, IMPAIRED SPEECH and FACIAL DROOP. 21:15 11/05/16. Alert. SEPSIS SCREEN: Sepsis Screen. Negative (no infection suspected/documented). TIANA COMA SCORE: [place] Coma Scale: 11- eyes open spontaneously (4); best verbal response- incoherent speech (2); best motor response- localizes to pain (5). --21:35 Janee Zhao 21:15 11/05/16. BP: 169/83. HR: 62. RR: 14. O2 saturation: 100% on room air. Temp: 97.8 F (oral). FLACC pain scale: 6/10. --21:35 Janee Zhao. Weight: 64.5 kg measured. Height/Length: 67 inches Measured. BMI: 22.3. --21:27 Janee Zhao. Medications Tylenol Oral, as needed. --21:32 Janee Zhao Calcium. --21:33 Janee Zhao Ciclopirox External (Solution 8 %). --21:33 Janee Zhao Epigallocatechin Gallate. --21:33 Janee Zhao Levothyroxine Sodium Oral 50 mcg, daily. --21:33 Janee Zhao Memantine HCl Oral (Tablet 10 mg). --21:33 Janee Zhao [place] 3 Oral. --21:34 Janee Zhao Terbinafine HCl Oral (Tablet 250 mg). --21:34 Janee Zhao Vitamin c Oral. --21:34 Janee Zhao Vitamin D Oral. --21:34 Janee Zhao Vitamin E Oral. --21:35 Janee Zhao. Medication/allergy information source: the patient's imported external medical record. --21:35 Janee Zhao. Allergies Combivent. --21:35 Janee Zhao. History Arrived by EMS. Historian: EMS. Primary physician (Chanelle Villegas). 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 This started just prior to arrival. Patient was last known well (20:40 Nov 05 2016). Onset was abrupt. ( states that patient tripped this AM and hit knuckles, no LOC.). He has had altered mental status, difficulty with speech, trouble walking and trouble swallowing He has had a recent fall (no head injury. Fell last week a couple times.). No headache. Treatment HEALTH OCCUPATIONS TEACHER: See EMS report. EMS treatment HEALTH OCCUPATIONS TEACHER verbally communicated. Finger stick glucose performed (117). BP: 148/palp. HR: 54. ( EMS reports that patient was sitting and suddenly slumped over and started drooling. EMS assessed left sided facial droop, arm weakness. Normally patient is independent and walking around.). PAST MEDICAL HX: Dementia. Seizures unsure, pt had EEG on Tuesday- didn't hear results of scan. No history of stroke, diabetes mellitus or hypertension. Immunizations: up-to-date. SOCIAL HX: Former smoker (pt quit at age 18.). No alcohol use or drug use. NUTRITIONAL RISK ASSESSMENT: The nutritional risk assessment revealed no deficiencies. FUNCTIONAL ASSESSMENT: Functional assessment: no impairments noted. LEARNING NEEDS ASSESSMENT: The learning needs assessment revealed no barriers. FALL RISK ASSESSMENT: Fall risk assessment completed. Risk factors identified include patient age greater than 65 years, history of fall and impairment of mobility, sensation and cognition. SKIN INTEGRITY ASSESSMENT: Skin integrity risk assessment completed. No skin integrity risk identified. TIANA COMA SCORE: [place] Coma Scale: 15- eyes open spontaneously (4); best verbal response- oriented x 4 (5); best motor response- obeys commands (6). --21:35 Janee Zhao. PROBLEMS: Syncope. URI. Hyponatremia. Diarrhea. Gastroenteritis. Weakness. Hypotension. Hypovolemia. Lung Disease. Hematuria. COPD - Chronic Obstructive Pulmonary Disease. --21:35 Janee Zhao. ADDITIONAL SURGERIES: Hernia-inguinal. --21:35 Janee Zhao. Assessment The patient states feels the same. --21:35 Janee Zhao. Interventions ID band on patient. --21:35 Janee Zhao. 21:06 11/05/2016 Site #1 started prior to arrival by EMS via IV in the right forearm with an 18g angiocath. --21:24 Janee Zhao 21:15 11/05/2016 Site #2 started via IV in the left antecubital space with an 20g angiocath, with aseptic technique and good blood return; one attempt. Blood drawn: rainbow set. Labeled in the presence of the patient and sent to the lab. Saline lock flushed with 10 mL saline. --21:24 Janee Zhao. PHYSICAL ASSESSMENT 21:08 11/05/16. To room via stretcher. Patient gowned. GENERAL / NEURO / PSYCH: Awake. Appears in no acute distress. The patient is disoriented (unable to assess). Expressive aphasia. Severe slurred speech. Finger-nose test abnormal (unable to assess). Moves extremities with decreased movement of the left upper and lower extremity. Strength is unequal; right college director is greater than the left college director and right foot push/pull is greater than the left foot push/pull. ( Gazes to the upper right side.). Pupillary exam: Right pupil 2mm, round and briskly reactive to light directly. Left pupil: 2mm, round and briskly reactive to light directly. NIH Stroke Scale: score 27. Performed at 21:15 Nov 05 2016. Level of Consciousness: alert (0). LOC Questions: neither (2). LOC Commands: neither (2). Best gaze: forced deviation (2). Visual field loss: complete hemianopsia (2). Facial palsy: complete (3). Motor arm: no drift right arm (0) and no movement left arm (4). Motor leg: no drift right leg (0) and no movement left leg (4). Limb ataxia: two limbs (2). Sensory loss: mild to moderate (1). Aphasia: mute (3). Dysarthria: severe (2). HEENT: Facial weakness. Left visual field deficit. No signs of head trauma. RESPIRATORY: Respirations not labored. CVS: Cardiac rhythm: sinus bradycardia. SKIN: Skin is pale. Skin is intact. Skin is cool. --21:44 Janee Zhao. NURSING PROGRESS NOTES :11/05/16. The plan of care for this patient has been created. front desk monitor, pulse oximeter and NIBP monitor placed on patient; monitor worker- Lead II and V5; monitor alarms on. Patient gowned. Head of bed elevated. Reassurance given. Two patient identifiers checked. Call light placed in reach. Side rails up x 2. Bed placed in lowest position. Brakes of bed on. Patient ready for evaluation- chart flagged and ED physician notified. ( EDMD in room on arrival). --21:45 Janee Zhao Patient transported to CT by stretcher. (Pt transported to CT on EMS gurney with EMS, 2 RN, and ERMD. 21:Nov 05 2016). --21:46 Janee Zhao Patient returned from CT by stretcher. (:Nov 05 2016 Patient returned on ER gurney.). --21:46 Janee Zhao 21:46 11/05/16. BP: 156/82. HR: 64. RR: 11. O2 saturation: 100%. FLACC pain scale: 2/10. --21:47 Janee Zhao EKG time: (2121). EKG was ordered, performed by a tech and shown to the ED physician. --21:51 Janee Zhao TIANA COMA SCORE: [place] Coma Scale: 11- eyes open spontaneously (4); best verbal response- incoherent speech (2); best motor response- localizes to pain (5). --21:52 Janee Zhao 21:21 11/05/16. 16 fr magana catheter placed. Reason for indwelling catheter: patient being comatose. During procedure hand hygiene observed and sterile equipment and aseptic technique used. Return of 700 mL yellow-colored clear urine; attached to bedside drainage bag positioned below the bladder and secured with strap. He tolerated procedure well. --21:54 Janee Zhao 21:30 11/05/16. ( Pt given warm blanket). --21:51 Janee Zhao 21:54 11/05/16. BP: 164/83. HR: 58. RR: 10. O2 saturation: 100% on nasal cannula at 3 liters/minute. FLACC pain scale: 2/10. --21:58 Janee Zhao ( Family discussed options with ERMD, decided that they would prefer that patient wasn't transported to [facility] and was placed on comfort care. Will continue to monitor.). --22:10 Janee Zhao 23:59 11/05/16. BP: 162/86. HR: 58. RR: 11. O2 saturation: 99% on nasal cannula at 3 liters/minute. FLACC pain scale: 0/10. --00:01 Janee Zhao 01:11/06/2016 Site #[address] upon admission; patent, no pain and no signs of infection or infiltration. --01:14 Janee Zhao 01:11/06/2016 IV Saline Lock Drip IV Continued: upon admission at the rate of 0 mL/hr. --01:14 Janee Zhao 01:11/06/2016 Site #[address] upon admission; patent, no pain and no signs of infection or infiltration. --01:15 Janee Zhao. [facility] 22[facility]05 11/05/16. Condition at departure: unchanged. The goals identified in the patient's plan of care were met. --22:05 Janee Zhao --END STRIKE>> Correction --23:59 Janee Zhao 22:05 11/05/16. BP: 165/85. HR: 63. RR: 12. O2 saturation: 100%. Pain level now 2/10. --22:05 Janee Zhoa 00:44 11/06/16. Condition at departure: unchanged. The goals identified in the patient's plan of care were met. --00:44 Janee Zhao 00:43 11/06/16. BP: 152/78. HR: 59. RR: 11. O2 saturation: 98% on nasal cannula at 3 liters/minute. Pain level now: 0/10. --00:44 Janee Zhao 01:10 11/06/16. Departure time: 01:11 Nov 06 2016. Admitted to Acute Care. Transported via stretcher by nurse with O2. Report was given to a nurse via a phone call. Report included patient's care, treatment, medications, reviewed medication reconcilliation, and condition (including any recent changes or anticipated changes). All questions were answered. Report was acknowledged and care was transferred. (Luz). Bed obtained and ready. Patient's personal items include, Belongings taken by . --01:16 Janee Zhao. Locked/Released at 11/06/2016 1:16 by Janee Zhao,
--- NOTE | 2016-11-05 21:54 | ED NURSING NOTES ---
Clinical Report - Nurses [facility] [address] [place] [address] 11/05/2016 21:06 Patient: AURELIANO FARRELL TRIAGE Triage time 21:Nov 05 2016. Acuity: LEVEL 2. Chief Complaint: WEAKNESS, IMPAIRED SPEECH and FACIAL DROOP. 21:15 11/05/16. Alert. SEPSIS SCREEN: Sepsis Screen. Negative (no infection suspected/documented). TIANA COMA SCORE: [place] Coma Scale: 11- eyes open spontaneously (4); best verbal response- incoherent speech (2); best motor response- localizes to pain (5). --21:35 Janee Zhao 21:15 11/05/16. BP: 169/83. HR: 62. RR: 14. O2 saturation: 100% on room air. Temp: 97.8 F (oral). FLACC pain scale: 6/10. --21:35 Janee Zhao. Weight: 64.5 kg measured. Height/Length: 67 inches Measured. BMI: 22.3. --21:27 Janee Zhao. Medications Tylenol Oral, as needed. --21:32 Janee Zhao Calcium. --21:33 Janee Zhao Ciclopirox External (Solution 8 %). --21:33 Janee Zhao Epigallocatechin Gallate. --21:33 Janee Zhao Levothyroxine Sodium Oral 50 mcg, daily. --21:33 Janee Zhao Memantine HCl Oral (Tablet 10 mg). --21:33 Janee Zhao [place] 3 Oral. --21:34 Janee Zhao Terbinafine HCl Oral (Tablet 250 mg). --21:34 Janee Zhao Vitamin c Oral. --21:34 Janee Zhao Vitamin D Oral. --21:34 Janee Zhao Vitamin E Oral. --21:35 Janee Zhao. Medication/allergy information source: the patient's imported external medical record. --21:35 Janee Zhao. Allergies Combivent. --21:35 Janee Zhao. History Arrived by EMS. Historian: EMS. Primary physician (Chanelle Villegas). ( CODE STROKE called 5 minutes ASSISTANT GENERAL MANAGER.). This started just prior to arrival. Patient was last known well (20:40 Nov 05 2016). Onset was abrupt. ( states that patient tripped this AM and hit knuckles, no LOC.). He has had altered mental status, difficulty with speech, trouble walking and trouble swallowing He has had a recent fall (no head injury. Fell last week a couple times.). No headache. Treatment ASSISTANT GENERAL MANAGER: See EMS report. EMS treatment ASSISTANT GENERAL MANAGER verbally communicated. Finger stick glucose performed (117). BP: 148/palp. HR: 54. ( EMS reports that patient was sitting and suddenly slumped over and started drooling. EMS assessed left sided facial droop, arm weakness. Normally patient is independent and walking around.). PAST MEDICAL HX: Dementia. Seizures unsure, pt had EEG on Tuesday- didn't hear results of scan. No history of stroke, diabetes mellitus or hypertension. Immunizations: up-to-date. SOCIAL HX: Former smoker (pt quit at age 18.). No alcohol use or drug use. NUTRITIONAL RISK ASSESSMENT: The nutritional risk assessment revealed no deficiencies. FUNCTIONAL ASSESSMENT: Functional assessment: no impairments noted. LEARNING NEEDS ASSESSMENT: The learning needs assessment revealed no barriers. FALL RISK ASSESSMENT: Fall risk assessment completed. Risk factors identified include patient age greater than 65 years, history of fall and impairment of mobility, sensation and cognition. SKIN INTEGRITY ASSESSMENT: Skin integrity risk assessment completed. No skin integrity risk identified. TIANA COMA SCORE: [place] Coma Scale: 15- eyes open spontaneously (4); best verbal response- oriented x 4 (5); best motor response- obeys commands (6). --21:35 Janee Zhao. PROBLEMS: Syncope. URI. Hyponatremia. Diarrhea. Gastroenteritis. Weakness. Hypotension. Hypovolemia. Lung Disease. Hematuria. COPD - Chronic Obstructive Pulmonary Disease. --21:35 Janee Zhao. ADDITIONAL SURGERIES: Hernia-inguinal. --21:35 Janee Zhao. Assessment The patient states feels the same. --21:35 Janee Zhao. Interventions ID band on patient. --21:35 Janee Zhao. 21:06 11/05/2016 Site #1 started prior to arrival by EMS via IV in the right forearm with an 18g angiocath. --21:24 Janee Zhao 21:15 11/05/2016 Site #2 started via IV in the left antecubital space with an 20g angiocath, with aseptic technique and good blood return; one attempt. Blood drawn: rainbow set. Labeled in the presence of the patient and sent to the lab. Saline lock flushed with 10 mL saline. --21:24 Janee Zhao. PHYSICAL ASSESSMENT 21:08 11/05/16. To room via stretcher. Patient gowned. GENERAL / NEURO / PSYCH: Awake. Appears in no acute distress. The patient is disoriented (unable to assess). Expressive aphasia. Severe slurred speech. Finger-nose test abnormal (unable to assess). Moves extremities with decreased movement of the left upper and lower extremity. Strength is unequal; right pain medicine physician is greater than the left pain medicine physician and right foot push/pull is greater than the left foot push/pull. ( Gazes to the upper right side.). Pupillary exam: Right pupil 2mm, round and briskly reactive to light directly. Left pupil: 2mm, round and briskly reactive to light directly. NIH Stroke Scale: score 27. Performed at 21:15 Nov 05 2016. Level of Consciousness: alert (0). LOC Questions: neither (2). LOC Commands: neither (2). Best gaze: forced deviation (2). Visual field loss: complete hemianopsia (2). Facial palsy: complete (3). Motor arm: no drift right arm (0) and no movement left arm (4). Motor leg: no drift right leg (0) and no movement left leg (4). Limb ataxia: two limbs (2). Sensory loss: mild to moderate (1). Aphasia: mute (3). Dysarthria: severe (2). HEENT: Facial weakness. Left visual field deficit. No signs of head trauma. RESPIRATORY: Respirations not labored. CVS: Cardiac rhythm: sinus bradycardia. SKIN: Skin is pale. Skin is intact. Skin is cool. --21:44 Janee Zhao. NURSING PROGRESS NOTES :11/05/16. The plan of care for this patient has been created. foundry worker apprentice, pulse oximeter and NIBP monitor placed on patient; appliance service technician- Lead II and V5; monitor alarms on. Patient gowned. Head of bed elevated. Reassurance given. Two patient identifiers checked. Call light placed in reach. Side rails up x 2. Bed placed in lowest position. Brakes of bed on. Patient ready for evaluation- chart flagged and ED physician notified. ( EDMD in room on arrival). --21:45 Janee Zhao Patient transported to CT by stretcher. (Pt transported to CT on EMS gurney with EMS, 2 RN, and ERMD. 21:Nov 05 2016). --21:46 Janee Zhao Patient returned from CT by stretcher. (:Nov 05 2016 Patient returned on ER gurney.). --21:46 Janee Zhao 21:46 11/05/16. BP: 156/82. HR: 64. RR: 11. O2 saturation: 100%. FLACC pain scale: 2/10. --21:47 Janee Zhao EKG time: (2121). EKG was ordered, performed by a tech and shown to the ED physician. --21:51 Janee Zhao TIANA COMA SCORE: [place] Coma Scale: 11- eyes open spontaneously (4); best verbal response- incoherent speech (2); best motor response- localizes to pain (5). --21:52 Janee Zhao 21:21 11/05/16. 16 fr magana catheter placed. Reason for indwelling catheter: patient being comatose. During procedure hand hygiene observed and sterile equipment and aseptic technique used. Return of 700 mL yellow-colored clear urine; attached to bedside drainage bag positioned below the bladder and secured with strap. He tolerated procedure well. --21:54 Janee Zhao 21:30 11/05/16. ( Pt given warm blanket). --21:51 Janee Zhao 21:54 11/05/16. BP: 164/83. HR: 58. RR: 10. O2 saturation: 100% on nasal cannula at 3 liters/minute. FLACC pain scale: 2/10. --21:58 Janee Zhao ( Family discussed options with ERMD, decided that they would prefer that patient wasn't transported to [facility] and was placed on comfort care. Will continue to monitor.). --22:10 Janee Zhao 23:59 11/05/16. BP: 162/86. HR: 58. RR: 11. O2 saturation: 99% on nasal cannula at 3 liters/minute. FLACC pain scale: 0/10. --00:01 Janee Zhao 01:11/06/2016 Site #[address] upon admission; patent, no pain and no signs of infection or infiltration. --01:14 Janee Zhao 01:11/06/2016 IV Saline Lock Drip IV Continued: upon admission at the rate of 0 mL/hr. --01:14 Janee Zhao 01:11/06/2016 Site #[address] upon admission; patent, no pain and no signs of infection or infiltration. --01:15 Janee Zhao. [facility] 11[facility]16. Condition at departure: unchanged. The goals identified in the patient's plan of care were met. --22:05 Janee Zhao --END STRIKE>> Correction --23:59 Janee Zhao 22:05 11/05/16. BP: 165/85. HR: 63. RR: 12. O2 saturation: 100%. Pain level now 2/10. --22:05 Janee Zhao 00:44 11/06/16. Condition at departure: unchanged. The goals identified in the patient's plan of care were met. --00:44 Janee Zhao 00:43 11/06/16. BP: 152/78. HR: 59. RR: 11. O2 saturation: 98% on nasal cannula at 3 liters/minute. Pain level now: 0/10. --00:44 Janee Zhao 01:10 11/06/16. Departure time: 01:11 Nov 06 2016. Admitted to Acute Care. Transported via stretcher by nurse with O2. Report was given to a nurse via a phone call. Report included patient's care, treatment, medications, reviewed medication reconcilliation, and condition (including any recent changes or anticipated changes). All questions were answered. Report was acknowledged and care was transferred. (Luz). Bed obtained and ready. Patient's personal items include, Belongings taken by . --01:16 Janee Zhao. Locked/Released at 11/06/2016 1:16 by Janee Zhao,
--- NOTE | 2016-11-05 21:54 | ED CLINICAL REPORT ---
Clinical Report - Physicians/Mid Levels [facility] [address] [place] [address] 11/05/2016 21:06 Patient: AURELIANO FARRELL Time Seen: 21:08; initial patient contact. Arrived- By ambulance. Historian- EMS personnel. History limited by aphasia. Physical Exam limited by poor comprehension and dementia. HISTORY OF PRESENT ILLNESS Chief Complaint: WEAKNESS, FACIAL DROOP and IMPAIRED SPEECH. The patient has had new onset of constant, localized weakness of the left face (moderate), left arm (moderate), left hand (moderate), left leg (moderate) and left foot (moderate). He has had difficulty with speech and impaired swallowing. He has had difficulty walking. He has had one recent fall (Earlier today, did not strike his head. Not on anticoagulation.). This started about 30 minutes ago, patient was last known well (this afternoon) and is still present. It was abrupt in onset. At its maximum deficit described as severe. When seen in the E.D., described as severe. No altered mental status or seizure. Is not usually alert and oriented X3. Usually has normal mobility. He is usually alert but confused and usually walks without assistance. The patient is right handed. Similar symptoms previously: None. Recent medical care: Not recently seen/assessed. REVIEW OF SYSTEMS No headache, head injury, difficulty breathing, nausea or vomiting. No alteration in mental status. He has had difficulty walking. He has had weakness. All systems otherwise negative, except as recorded above. PAST HISTORY ( URI. Hyponatremia. Diarrhea. Gastroenteritis. Weakness. Hypotension. Hypovolemia. Lung Disease. Dementia. Hematuria. COPD - Chronic Obstructive Pulmonary Disease.).). SOCIAL HISTORY Former smoker. No alcohol use or drug use. ADDITIONAL NOTES The nursing notes have been reviewed. PHYSICAL EXAM Vital Signs: 11/05/2016 21:15 BP: 169/83. HR: 62. RR: 14. O2 saturation: 100%. Temp: 97.8 F. FLACC pain scale: 6/10. Have been reviewed. Hypertensive. Heart rate normal. Respiratory rate normal. Temperature normal. Oxygen saturation normal. Appearance: Alert. Patient in mild distress. Head: Head atraumatic. ENT: Airway intact. (Difficult to assess EOM's due to comprehension). Neck: No carotid bruit. CVS: Bradycardia. Heart sounds normal. Rhythm normal. Respiratory: No respiratory distress. Breath sounds normal. Abdomen: Soft and nontender. No organomegaly. Skin: Skin warm and dry. Normal skin color. Extremities: No lower extremity edema. Neuro: Alert. Expressive aphasia. He has had constant, localized weakness of the left face (moderate), left arm (severe), left hand (severe), left leg (mild) and left foot (mild). NIH Stroke Scale: score 14. Level of Consciousness: drowsy (1). Best gaze: partial gaze palsy (1). Facial palsy: complete (3). Motor arm: no movement left arm (4). Motor leg: some effort against gravity left leg (2). Limb ataxia: one limb (1). Aphasia: mild to moderate (1). Dysarthria: mild to moderate (1). Severe left sided pronator drift. LABS, X-RAYS, AND EKG EKG: EKG time: (2121). Bradycardia (ventricular rate 56). Normal P waves. Normal AUREA. Normal QRS complex. Normal axis. Normal ST and T waves, QT and QTc. Prior EKG unavailable. The study has been interpreted contemporaneously by me. The study has been independently viewed by me. The EKG appears to be a good tracing. Interpretation time: 2121. CT Head: (4.5x3.2x2.5 cm intraparenchymal hemorrhage R frontal lobe w/ small subarachnoid hemorrhage, mild to mod mass effect, no mid-line shift.). Head CT performed without contrast. The study was independently viewed by me, interpreted by the radiologist and discussed with the radiologist. Prior studies were not available for comparison. Laboratory Tests: CBC w Diff: (CODY: 11/05/2016 21:20) ( MsgRcvd 11/05/2016 21:36) Final results Test Result Flag Units (Reference) WHITE BLOOD COUNT 6.5 K/uL (4.5-11.5) RED BLOOD COUNT 3.97 L M/uL (4.50-5.90) HEMOGLOBIN 12.5 L gm/dL (13.5-17.5) HEMATOCRIT 36.4 L % (41.0-53.0) MEAN CELL VOLUME 92 fL (80-100) MEAN CORPUSCULAR HGB 32 pg (26-34) MEAN CORPUSCULAR HGB CONC 34 g/dL (31-37) RED CELL DISTRIBUTION WIDTH 14.4 % (11.6-14.8) PLATELET COUNT 266 K/uL (150-400) NEUTROPHIL % 75.2 H % (50-75) LYMPH % 16.2 L % (25-40) MONO % 7.5 % (3-14) EOSINOPHIL % 0.8 % (0-4) BASOPHIL % 0.3 % (0-2) PT with INR: (CODY: 11/05/2016 21:20) ( [facility] 11/05/2016 21:55) Final results Test Result Flag Units (Reference) INR 1.0 (0.8-1.2) Low Intensity Therapy: INR 1.5-2.0 PT range 18.5-23.1Mod.Intensity Therapy: INR 2.0-3.0 PT range 23.1-31.5High Intensity Therapy: INR 2.5-3.5 PT range 27.4-35.5High Intensity Therapy 2: INR 3.0-4.0 PT range 31.5-39.3 APTT 33 SECONDS (24-34) FIBRINOGEN 225 mg/dL (193-455) D-DIMER QUANTITATIVE 0.30 ug/mLFEU (0.27-0.52) The primary value of this quantitative assay relates toits negative predictive value (i.e. exclusion) of pulmonaryembolism/deep vein thrombosis/DIC.Elevated levels of d-dimer may also occur with:, age, cancer, inflammation, liver disease,post-op, infection, hematoma, coronary disease, peripheralarteriopathy, bleeding disorders and thrombolytic treatment.Results should be correlated with other clinical andradiological data.Testing Methodology: Latex Immunoassay CMP: (CODY: 11/05/2016 21:20) ( [facility] 11/05[facility]2016 21[facility]44) Final results Test Result Flag Units (Reference) GLUCOSE 95 mg/dL (70-110) BUN 16 mg/dL (7-18) CREATININE 0.9 mg/dL (0.6-1.3) Estimated GFR >60 mL/min Estimated GFR- >60 mL/min Note: Persistent reduction over 3 months in eGFR<60 mL/min/1.73 m2 defines CKD. Patients with eGFR values>=60 mL/min/1.73 m2 may also have CKD if evidence ofpersistent proteinuria. Additional information may be foundat [email or web address]. SODIUM 132 L mmol/L (136-145) POTASSIUM 4.0 mmol/L (3.5-5.1) CHLORIDE 96 L mmol/L (98-107) CARBON DIOXIDE 28 mmol/L (21-32) CALCIUM 8.7 mg/dL (8.5-10.1) TOTAL PROTEIN 6.4 g/dL (6.4-8.2) ALBUMIN 3.8 g/dL (3.3-5.0) BILIRUBIN, TOTAL 0.3 mg/dL (0.0-1.0) ALKALINE PHOSPHATASE 43 L U/L (46-116) AST (SGOT) 20 U/L (15-37) ALT (SGPT) 23 U/L (12-78) . PROGRESS AND PROCEDURES Course of Care: 22:11 11/05/16. Discussion held with family, they have opted for hospice. [facility] contacted. Currently researching options. Pt's states they don't have room at their home for hospice there. Critical care performed (65 minutes). Time includes: direct patient care, patient reassessment, coordination of patient care, interpretation of data (laboratory data and pulse oximetry), review of patient's medical records, medical consultation, family consultation regarding treatment decisions and documentation of patient care. The patient required critical care due to the acute impairment of vital organ systems (central nervous system) and a high probability of imminent deterioration. Discussed case with on-call health care provider, (call returned 21:41 Dr. Thomas [facility] stroke attending accpets pt. Will send ground ALS. Labetalol to Tx HTN if SBP > 180 or MAP > 130.). Reviewed test results and need for additional work-up. Agreed upon treatment plan. Health care provider will see patient in ED. Discussed case with health care provider (call returned 23:00 Dr. Lee, will accept the pt for comfort care.). Disposition: Admitted to Acute Care. Comfort care. Condition: stable. Comfort care. 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 INSTRUCTIONS Follow-up: Screening today revealed the patient's blood pressure to be in the hypertensive range. The patient was admitted and blood pressure will be managed during the admission. (Electronically signed by Marquise Lantigua Dr. 11/06/2016 0:56)
--- NOTE | 2016-11-05 21:54 | ED ORDER SUMMARY ---
..... Patient: AURELIANO FARRELL OrderSheet [facility] VisitID: [id number] [place] [address] 86y, M Registration Date/Time: 11/05/2016 ORDER SHEET Weight: 64.5 kg (measured) Allergies: Combivent GENERAL ORDERS: CT Head wo Cont Urgent (21:11/05/2016 Deshawn ER Brake Repairer Bus verbal order read back to Karin Land) (Ack 21:09 Deshawn ER Brake Repairer Bus) (21:21 MCampbell) Stroke Panel Stat (21:11/05/2016 Karin Land) (Ack 21:26 Deshawn ER Brake Repairer Bus) (21:34 JLake RTasiaN.) EKG - ER Stat (21:11/05/2016 Karin Land) (21:25 CHategekimana) MEDICATION ORDERS: IV FLUIDS: IV Saline Lock (21:09 11/05/2016 Karin Land) (21:35 JQubrandi R.N.) ORDER SHEET NOTES: [Electronically signed by Marquise Lantigua Dr. (00:56 11/06/2016)] [Electronically signed by Janee Zhao (01:16 11/06/2016)] [Electronically locked/signed by Janee Zhao (01:16 11/06/2016)]
[2016-11-06] VITALS (8 sets, daily range): BP systolic 86–161; BP diastolic 46–86
--- NOTE | 2016-11-06 01:11 | Progress Note ---
Subjective General Admission History and Physical Examination Patient Name: Bryan Mathews Admission Date: 11/06/2016 Status: AC in patient. Primary Care Provider: Dr. Villaseñor Attending Physician: Pelon Orozco M.D. Admitting Physician: Arsen Lee M.D. Code Status: DNR/limited additional measures Room: 3rd floor SUBJECTIVE Historian: Keesha Reliability: Excellent Chief Complaint: Acute altered mental status Hemorrhagic stroke Comfort Care History of Present Illness: The patient is an 86-year-old white male with a past medical history of dementia , long-standing COPD, urinary incontinence, who today sustained a hemorrhagic stroke. reports that they just got home from a long walk. This is followed by a period of confusion; beyond normal baseline for dementia. Patient wanted something to eat and began eating grapes. reports that the grapes were stuck in one set of the mouth and noted a facial droop on that side. This is followed by a lean to the left. Patient's mental status changes occurred. states that he was no longer conversant conversant. Patient's called EMS and patient was transferred to [facility] ED. At the [facility] ED a Workup was performed including a CT of the head. This showed 0.5 x 3.2 x 2.5 cm Intraparenchymal hemorrhage in the right frontal lobe. No evidence of midline shift. Emergency department was attempting a transfer to [facility]. This however was halted after family became informed. Family elected to place patient on a hospice status and delivered Comfort Care measures only. They said this is following his wishes. The [facility] and home health was informed. Patient was not able to interview until Tuesday. Therefore, patient was admitted to [facility] under hospitalist services comfort. Patient is admitted under Dr. Arsen Lee hospitalist service for further observation and Comfort Care measures. PAST MEDICAL HISTORY Illnesses: 1. Dementia. 2. COPD, long-standing. 3. Previous history of swallowing or inhaling turpentine with disruption of the normal pulmonary parenchyma leaving patient with COPD 4. Lower blood pressure readings. Allergies: 1. NKDA Medications: 1. None Surgery: 1. Hernia repair. [place] Injuries: 1. Undetermined Hospitalizations: 1. Patient was hospitalized back in March 2015 he also had multiple admissions for pneumonia FAMILY HISTORY Parents: 1. Father, lifting totally achieve 85 remarkable for diabetes and cardiovascular disease, 2. Mother, mother passed the age 93, complications related to age Children: 1. 3 children. 2 local 1 lives in [facility] 50 years old Arsen, 52 years old, Quentin 43 years old SOCIAL HISTORY 1. Marital Status: continues smoking in 1955 2. Drugs: none 3. Alcohol: None 4. Caffeine: 4 cups coffee per day HEALTH SUPERVISION Item/Test See records through [facility] 1. Vision screen: 2014 2. Cholesterol Profile: 08/04/16 3. PSA: [PSA] 4. FAITH: [FAITH] 5. FOBT: [FOBT] 6. Blood Glucose: [GLU] 08/04/16 7. Colonoscopy: [colonoscopy] 08/04/16 8. History and physical exam: 08/04/16 IMMUNIZATIONS: Available through the [facility] 1. Pneumococcal: [pneumonia] 2. Influenza: [flu] 3. Tetanus: [tet] ADVANCED DIRECTIVES: 1. Living well: Living will in place at home 2. POLST: Completed POLST for 10/13/2016 3. Code Status: code status, limited measures 4. 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 Donor card: Unknown REVIEW OF SYSTEMS Remarkable for those things stated in the history of present illness and past medical history. Constitutional Malaise. ENT Denies: Mouth Pain, Mouth Swelling. Respiratory Denies: SOB w/exertion, Hemoptysis. Cardiovascular Denies: Palpitations. Gastrointestinal Denies: Abdominal Pain. Skin Denies: Bruising. Physical Exam Vital Signs / I&Os BP: 169/83. HR: 62. RR: 14. O2 saturation: 100%. Temp: 97.8 F General Appearance Mild distress, Non responsive HEENT Moist mucous membranes Lungs Clear to auscultation Neck No JVD Cardiovascular Normal S1 and S2 Abdomen Soft, No tenderness, No guarding, No rebound Extremities No edema, Normal pulses Skin No Significant Lesions Neurological altered mental status changes Psych/Mental Status unresponsive LAB Results Laboratory Tests 11/06 2119 Chemistry Plasma Sodium (136 - 145 mmol/L) 132 Plasma Potassium (3.5 - 5.1 mmol/L) 4.0 Plasma Chloride (98 - 107 mmol/L) 96 CO2 (Enzymatic) (21 - 32 mmol/L) 28 BUN (7 - 18 mg/dL) 16 Creatinine (0.6 - 1.3 mg/dL) 0.9 Est GFR ( Amer) (mL/min) >60 Est GFR (Non-Af Amer) (mL/min) >60 Glucose (70 - 110 mg/dL) 95 Plasma Calcium (8.5 - 10.1 mg/dL) 8.7 Total Bilirubin (0.0 - 1.0 mg/dL) 0.3 AST (15 - 37 U/L) 20 ALT (12 - 78 U/L) 23 Alkaline Phosphatase (46 - 116 U/L) 43 Total Protein (6.4 - 8.2 g/dL) 6.4 Albumin (3.3 - 5.0 g/dL) 3.8 Coagulation INR (0.8 - 1.2) 1.0 APTT (24 - 34 SECONDS) 33 Fibrinogen (193 - 455 mg/dL) 225 D-Dimer, Quantitative (0.27 - 0.52 ug/mLFEU) 0.30 Hematology WBC (4.5 - 11.5 K/uL) 6.5 RBC (4.50 - 5.90 M/uL) 3.97 Hgb (13.5 - 17.5 gm/dL) 12.5 Hct (41.0 - 53.0 %) 36.4 MCV (80 - 100 fL) 92 MCH (26 - 34 pg) 32 RDW (11.6 - 14.8 %) 14.4 Neut % (Auto) (50 - 75 %) 75.2 Lymph % (Auto) (25 - 40 %) 16.2 Wayne % (Auto) (3 - 14 %) 7.5 Eos % (Auto) (0 - 4 %) 0.8 Baso % (Auto) (0 - 2 %) 0.3 Plt Count, EDTA (150 - 400 K/uL) 266 PUBS MCHC (31 - 37 g/dL) 34 Imaging IMPRESSION: 1. There is a 4.5 x 3.2 x 2.5 cm intraparenchymal hemorrhage in the right frontal lobe with small subarachnoid hemorrhage. Associated mild to moderate mass effect, but no evidence of midline shift. 2. 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 3. Findings discussed with the Marquise Lantigua at 0930 hours. Assessment and Plan Problem List 1. Hemorrhagic stroke Plan Acute abrupt onset hemorrhagic stroke History of underlying dementia. No prior stroke or heart disease. Today sustained stroke, hemorrhagic etiology. Alterations in mental status. Prior delineations of care were drawn up Elected to admit patient for comfort measures only Hospices been informed, but unable to deliver an interview until 2 days later. Patient will be brought in under acute care status Emergency department discussed the care with William at the [facility] stroke Center Previously outlined up patient to be sent by ground to [facility] family elected not to continue with the protocol 2. ALTERED MENTAL STATUS Plan Acute changes in mental status. There is an underlying baseline of dementia Patient, however, was seen at his normal baseline, which included mild self-care activities including dressing, feeding. 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 4. Anemia Plan Chronic anemia No significant delineation of care. Necessitating dietary changes 5. Hypertension Plan We'll use labetalol for Systolic Blood pressure greater than 180 or map greater than 130 No sustained treatment for hypertension will be administered 6. Need for comfort care Plan Patient will be placed on comfort measures only Current status: Poor/guarded Anticipated discharge date: Needs an inteview with hospice by tuesday. Anticipated discharge placement: Discharged home when available Patient care time: Time spent in chart review, patient interview, physical exam, CPOE, and care documentation: 70 minutes Visit to patient today: 2 Complexity of care: Critical E&M Codes Rounding: Inpt-High/11834 Admission: Inpt-High/62248 Admission: Inpt-High/20017
--- NOTE | 2016-11-06 01:16 | ED MAR SUMMARY ---
..... Medication Administration Record [facility] [address], [place] [id number] Patient: AURELIANO FARRELL Visit ID: [id number] 86y, M Weight: 64.5 kg Height/Length: 67 in BMI: 22.3 ALLERGIES: Combivent
--- NOTE | 2016-11-06 01:16 | ED DISCHARGE INSTRUCTIONS ---
Patient: AURELIANO FARRELL General Instructions [facility] VisitID: [id number] [address] [place] [address] 86y, M Registration Date/Time: 11/05/2016 Nontraumatic cerebrovascular accident- hemorrhagic infarct and single intracerebral (cortical) hemorrhage. INSTRUCTIONS Follow-up: Screening today revealed the patient's blood pressure to be in the hypertensive range. The patient was admitted and blood pressure will be managed during the admission. (Electronically signed by Marquise Lantigua Dr. 11/06/2016 0:56)
--- NOTE | 2016-11-06 01:16 | ED MAR SUMMARY ---
..... Medication Administration Record [facility] [address] [place], [place] [id number] Patient: AURELIANO FARRELL Visit ID: [id number] 86y, M Weight: 64.5 kg Height/Length: 67 in BMI: 22.3 ALLERGIES: Combivent
--- NOTE | 2016-11-06 01:16 | ED DISCHARGE INSTRUCTIONS ---
Patient: AURELIANO FARRELL General Instructions [facility] VisitID: [id number] [address] [place] [address] 86y, M Registration Date/Time: 11/05/2016 Nontraumatic cerebrovascular accident- hemorrhagic infarct and single intracerebral (cortical) hemorrhage. INSTRUCTIONS Follow-up: Screening today revealed the patient's blood pressure to be in the hypertensive range. The patient was admitted and blood pressure will be managed during the admission. (Electronically signed by Marquise Lantigua Dr. 11/06/2016 0:56)
--- NOTE | 2016-11-06 01:17 | ED MED RECONCILIATION SUMMARY ---
Patient: AURELIANO FARRELL Medication Reconciliation Report [facility] VisitID: [id number] [address] [place] [address] 86y, M Registration Date/Time: 11/05/2016 Weight: 64.5 kg Height/Length: 67 in. BMI: 22.3 ALLERGIES: Combivent The patient's Home Medications are listed below: THE FOLLOWING MEDICATIONS NEED TO BE RECONCILED: Calcium Ciclopirox External (8 %) Epigallocatechin Gallate Levothyroxine Sodium Oral 50 mcg, daily Memantine HCl Oral (10 mg) [place] 3 Oral Terbinafine HCl Oral (250 mg) Tylenol Oral Vitamin c Oral Vitamin D Oral Vitamin E Oral The source(s) of the original Home Medication information: patient's imported external medical record The following Medications were given to the patient in the Emergency Department: None. The following Medications were prescribed to the patient: None.
--- NOTE | 2016-11-06 01:17 | ED MED RECONCILIATION SUMMARY ---
Patient: AURELIANO FARRELL Medication Reconciliation Report [facility] VisitID: [id number] [address] [place] [address] 86y, M Registration Date/Time: 11/05/2016 Weight: 64.5 kg Height/Length: 67 in. BMI: 22.3 ALLERGIES: Combivent The patient's Home Medications are listed below: THE FOLLOWING MEDICATIONS NEED TO BE RECONCILED: Calcium Ciclopirox External (8 %) Epigallocatechin Gallate Levothyroxine Sodium Oral 50 mcg, daily Memantine HCl Oral (10 mg) [place] 3 Oral Terbinafine HCl Oral (250 mg) Tylenol Oral Vitamin c Oral Vitamin D Oral Vitamin E Oral The source(s) of the original Home Medication information: patient's imported external medical record The following Medications were given to the patient in the Emergency Department: None. The following Medications were prescribed to the patient: None.
[2016-11-07 03:59] VITALS: BP 123/66
[2016-11-07 06:50] VITALS: BP 128/68
--- NOTE | 2016-11-07 12:29 | Discharge Summary ---
Discharge Summary Report Admit Date 11/05/16 Discharge Date 11/07/16 Admission Diagnosis 1- Hemoroghic stroke 2- Change in mental status 3- HTN 4- Dementia 5- Anemia Discharge Diagnosis 1- Hemorrogic stroke 2- Dementia 3- Change in mental status 4- HTN 5- Anemai Brief History The patient is an 86-year-old white male with a past medical history of dementia , long-standing COPD, urinary incontinence, who today sustained a hemorrhagic stroke. reports that they just got home from a long walk. This is followed by a period of confusion; beyond normal baseline for dementia. Patient wanted something to eat and began eating grapes. reports that the grapes were stuck in one set of the mouth and noted a facial droop on that side. This is followed by a lean to the left. Patient's mental status changes occurred. states that he was no longer conversant conversant. Patient's called EMS and patient was transferred to [facility] ED. At the [facility] ED a Workup was performed including a CT of the head. This showed 0.5 x 3.2 x 2.5 cm Intraparenchymal hemorrhage in the right frontal lobe. No evidence of midline shift. Emergency department was attempting a transfer to [facility]. This however was halted after family became informed. Family elected to place patient on a hospice status and delivered Comfort Care measures only. They said this is following his wishes. The [facility] and home health was informed. Patient was not able to interview until Tuesday. Therefore, patient was admitted to [facility] under hospitalist services comfort. Patient is admitted under Dr. Arsen Lee hospitalist service for further observation and Comfort Care measures. Hospital Course Patient was admitted with Full no code status and switched to comfort care only and plan was made for HOSPIC care and discharged today to [facility] with HOSPIC care over the facility. Continue out patient medications. General Appearance Alert (unresponsive) Lungs Clear to auscultation Cardiovascular Regular Rate, Normal S1, Normal S2 Abdomen Normal bowel sounds, Soft, No tenderness Skin No Rashes Neurological Normal gait (pathologic body component engineer reflex) Discharge Instructions/Meds Follow up with HOSPIC care in [facility]
--- NOTE | 2016-11-07 12:29 | Discharge Summary ---
Discharge Summary Report Admit Date 11/05/16 Discharge Date 11/07/16 Admission Diagnosis 1- Hemoroghic stroke 2- Change in mental status 3- HTN 4- Dementia 5- Anemia Discharge Diagnosis 1- Hemorrogic stroke 2- Dementia 3- Change in mental status 4- HTN 5- Anemai Brief History The patient is an 86-year-old white male with a past medical history of dementia , long-standing COPD, urinary incontinence, who today sustained a hemorrhagic stroke. reports that they just got home from a long walk. This is followed by a period of confusion; beyond normal baseline for dementia. Patient wanted something to eat and began eating grapes. reports that the grapes were stuck in one set of the mouth and noted a facial droop on that side. This is followed by a lean to the left. Patient's mental status changes occurred. states that he was no longer conversant conversant. Patient's called EMS and patient was transferred to [facility] ED. At the [facility] ED a Workup was performed including a CT of the head. This showed 0.5 x 3.2 x 2.5 cm Intraparenchymal hemorrhage in the right frontal lobe. No evidence of midline shift. Emergency department was attempting a transfer to [facility]. This however was halted after family became informed. Family elected to place patient on a hospice status and delivered Comfort Care measures only. They said this is following his wishes. The [facility] and home health was informed. Patient was not able to interview until Tuesday. Therefore, patient was admitted to [facility] under hospitalist services comfort. Patient is admitted under Dr. Arsen Lee hospitalist service for further observation and Comfort Care measures. Hospital Course Patient was admitted with Full no code status and switched to comfort care only and plan was made for HOSPIC care and discharged today to [facility] with HOSPIC care over the facility. Continue out patient medications. General Appearance Alert (unresponsive) Lungs Clear to auscultation Cardiovascular Regular Rate, Normal S1, Normal S2 Abdomen Normal bowel sounds, Soft, No tenderness Skin No Rashes Neurological Normal gait (pathologic coil placer reflex) Discharge Instructions/Meds Follow up with HOSPIC care in [facility]
== END 2016-11-07 14:45 | DRG 65 ==
LOC: ED SRH 21:04 → CC SRH 23:06 → TRANS SRH 23:06 → CC SRH 23:06 → EDBD 11-07 14:45
PROVIDERS: ADMIT Pediatrics
DX: I61.1 Nontraumatic intracerebral hemorrhage in hemisphere, cortical (principal); I60.9 Nontraumatic subarachnoid hemorrhage, unspecified; G81.94 Hemiplegia, unspecified affecting left nondominant side; R29.810 Facial weakness; R13.10 Dysphagia, unspecified; R47.02 Dysphasia; I10 Essential (primary) hypertension; R32 Unspecified urinary incontinence; T52 Toxic effect of organic solvents; J68.8 Other respiratory conditions due to chemicals, gases, fumes and vapors; J44.9 Chronic obstructive pulmonary disease, unspecified; D64.9 Anemia, unspecified; G30.9 Alzheimer's disease, unspecified; F02.80 Dementia in other diseases classified elsewhere, unspecified severity, without behavioral disturbance, psychotic disturbance, mood disturbance, and anxiety; Z66 Do not resuscitate; R29.714 NIHSS score 14